=== PATIENT | female | born 1985 | race Caucasian/White ===

== ENCOUNTER 2020-09-25 12:39 | Emergency (ER) | payer MEDICAID, SELFPAY ==
--- NOTE | 2020-09-25 | XR_ITS ---
EXAMINATION: XR ELBOW, RIGHT CLINICAL INFORMATION: Right elbow pain and swelling status post fall. COMPARISON: None TECHNIQUE: AP, lateral, and oblique views of the right elbow. FINDINGS: There is no acute fracture or dislocation. The joint spaces are unremarkable. A small joint effusion cannot be excluded. Mild to moderate soft tissue swelling is seen. XR/XR elbow RT min 3V IMPRESSION: Mild to moderate soft tissue swelling without acute underlying osseous abnormality. A small joint effusion cannot be excluded.
--- NOTE | 2020-09-25 | XR_ITS ---
EXAMINATION: XR HUMERUS, RIGHT CLINICAL INFORMATION: Falling with swelling and bruising. Pain COMPARISON: None TECHNIQUE: AP and lateral views of the right humerus. FINDINGS: There is oblique displaced and medially angulated mid humeral fracture. No additional bony abnormality seen. The soft tissues are normal. XR/XR humerus RT IMPRESSION: Oblique displaced medially angulated mid humeral fracture. No other bony abnormality seen.
[2020-09-25 14:07] VITALS: BP 131/76; PULSE 96; RESP 16; TEMP 37.1; O2SAT 97; BMI 28.3
--- NOTE | 2020-09-25 15:06 | ED_ITS ---
HPI - Extremity Problem General Chief complaint: Extremity Injury, Upper Stated complaint: ? shoulder dislocation Time Seen by Provider: 09/25/20 15:06 History of Present Illness HPI Narrative: Patient complains of right upper arm pain after she tripped carrying a laundry basket up stairs and fell forward hurting her right arm with no other injury This was a trip and fall no preceding dizziness or feeling faint Related Data Previous Rx's Medication Instructions Recorded ibuprofen 600 mg PO Q6H PRN #20 tab 09/25/20 oxycodone-acetaminophen [Percocet] 1 tab PO Q6H PRN #14 tab 09/25/20 Allergies Allergy/AdvReac Type Severity Reaction Status Date / Time tramadol [TRAMADOL] Allergy Unknown UNKNOWN Unverified 05/12/20 17:34 Review of Systems Review of Systems: Positive for right upper arm pain Negative no head injury no headache no dizziness no confusion no weakness no vision change, no neck injury no neck pain no numbness no weakness no paresthesias, no chest pain no rib pain Yes all other systems are reviewed and are negative [facility] Past Medical History Attestation statement: The following information was validated with the patient. [facility] Narrative: Medical history is insulin-dependent diabetes Source: nursing notes reviewed Medical History (Updated 09/25/20 @ 15:58 by CHUY Oh) FH: cholecystectomy IDDM (insulin dependent diabetes mellitus) Social History Social History Smoked in Last 30 Days: No Use of substances other than those prescribed or required for medical reasons: No Advance Directives: No Advance Directives Information Provided: No Physical Exam Vital Signs: Vital Signs: Last Vital Signs Temp 98.8 F 09/25/20 14:07 Pulse 96 09/25/20 14:07 Resp 16 09/25/20 14:07 BP 131/76 09/25/20 14:07 Pulse Ox 97 09/25/20 14:07 Body Mass Index 28.3 General appearance uncomfortable no acute distress A&O x3 cooperative Head is normocephalic atraumatic The neck is supple and nontender The chest nontender, no respiratory distress Extremities the right upper arm mid upper arm has ecchymosis tenderness and swelling, there is pain with movement of the elbow there is no tenderness in the elbow there is no tenderness in the shoulder, no tenderness over the clavicle, wrist has full range of motion with no tenderness or swelling and hand had no tenderness or swelling, radial pulses were intact and symmetrical on both arms, sensation and cap refill were intact and normal in fingers of right hand as was all tendon function Left upper extremity and both lower extremities were normal Skin no rashes Neuro no focal deficit Course Course Course Narrative: X-ray showed a displaced mid shaft fracture of the humerus and oblique fracture Case was discussed with physician assistant cordova, who viewed the x-rays and the x-ray report and said patient could be splinted and followed in the office tomorrow morning The nurse applied a volar and sugar-tong splint with a sling, neurovascular was intact afterwards Discharge Plan Discharge Clinical Impression: Closed right humeral fracture Qualifiers: Encounter type: initial encounter Humerus Location: shaft Fracture morphology: oblique Fracture alignment: displaced Qualified Code(s): S42.331A - Displaced oblique fracture of shaft of humerus, right arm, initial encounter for closed fracture Patient Disposition: Home, Self-Care Additional Instructions: X-ray showed a broken displaced bone in her upper arm We spoke with orthopedic physician licensed investment sales assistant juan cordova who said she wanted to see you in the office tomorrow so call [phone] [facility] tomorrow morning This should be seen tomorrow so if legal secretary receptionist does not have the message from the physician licensed investment sales assistant make sure you request that she talk to the physician licensed investment sales assistant who made it clear she wants this to be seen tomorrow Return to ER any worse condition or any concerns Prescriptions: New oxycodone-acetaminophen [Percocet] 5-325 mg tablet 1 tab PO Q6H PRN (Reason: pain) Qty: 14 RF: 0 ibuprofen 600 mg tablet 600 mg PO Q6H PRN (Reason: pain) Qty: 20 RF: 0 Referrals: Vish Cordova PA-C [Physician Cnc Maintenance Technician] - 1 day (Displaced right humerus fracture discussed with physician licensed investment sales assistant to be seen tomorrow Saturday in office) Interventions: ED Discharge Assessment Last Done: 09/25/20 16:35 Discharge Date/Time: 09/25/20 16:36
[2020-09-25] MEDS: oxyCODONE HCl Immed Release 5 MG TABLET PO ×2 (15:26→15:56)
[2020-09-25] MEDS: Acetaminophen 325 MG TABLET 650 MG PO (15:27)
== END 2020-09-25 16:36 | disposition home or self-care (01) ==
PROVIDERS: Emergency Provider Emergency Medicine; PCP Physician Assistant
DX: S42.331A Displaced oblique fracture of shaft of humerus, right arm, initial encounter for closed fracture (principal); M79.601 Pain in right arm; W10.9XXA Fall (on) (from) unspecified stairs and steps, initial encounter; Y93.9 Activity, unspecified; Y92.009 Unspecified place in unspecified non-institutional (private) residence as the place of occurrence of the external cause; Y99.9 Unspecified external cause status
CPT/HCPCS: 29105; 73060; 73080; 99283

== ENCOUNTER → 2020-09-26 10:19 | Outpatient (BNVA) | payer MEDICAID, SELFPAY | PROVIDERS: PCP Physician Assistant; Visit Provider Orthopaedic Surgery | DX: S42.309A Unspecified fracture of shaft of humerus, unspecified arm, initial encounter for closed fracture (principal) | CPT/HCPCS: 99202 ==

== ENCOUNTER 2020-09-28 10:05 | Day surgery (SDC) | payer MEDICAID, SELFPAY ==
[2020-09-27 10:37] VITALS: BMI 28.3
[2020-09-28] VITALS (19 sets, daily range): BP systolic 117–136; BP diastolic 65–86; PULSE 89–125; RESP 16–20; TEMP 36.2–37.4; O2SAT 93–99; BMI 28.3
--- NOTE | 2020-09-28 08:51 | HO.ANESPROP2 ---
HPI - Anesthesia Eval Consult details Narrative: 34F w/ DM p/f humerus fixation PMFSH Past Medical History Medical History FH: cholecystectomy IDDM (insulin dependent diabetes mellitus) Family History Family History Father No problems noted. Mother No problems noted. Surgical History Surgical History History of removal of cyst Hx of cholecystectomy Social History Social History Alcohol intake: never Smoking Status: Current every day smoker Cigarettes Per Day: 10 Use of substances other than those prescribed or required for medical reasons: No Advance Directives: No Advance Directives Information Provided: Yes Current occupational status: unemployed Current occupation: right handed Exam Exam Date and Time: September 28, 2020 0851 Height,Weight and Vital Signs: Height 5 ft 4 in Weight 74.843 kg Airway Mallampati Class: II TM Dist: >3cm Neck ROM: Full Loose/Missing/Broken Teeth: No Heart: RRR Lungs: NL Assessment and Plan Assessment Anesthesia Assessment: Anesthesia Plan Discussed and Chart Reviewed Final Anesthetic Review NPO: Yes ASA Class: II Final Preanesthetic Review: No Changes in Pt Med Stat, Meds/Allgs Chart Reviewed, Consent Obtained/Reviewed and Anes Risks/Benef Reviewed Patient Risk: Intermediate Procedure Risk: Intermediate Anesthetic Plan Anesthetic Plan: GA and Regional Block Disposition: Standard PACU
--- NOTE | 2020-09-28 09:44 | FL_ITS ---
EXAMINATION: XR FLUOROSCOPY WITH IMAGES CLINICAL INFORMATION: ORIF right humerus fracture COMPARISON: Previous x-ray 09/25/2020 TECHNIQUE: Fluoroscopy performed by Dr. Ruben Bermudez. Fluoroscopy time: 2.6 minutes DAP: 0.2 mGycm2 Images: 5 FINDINGS: There is an intramedullary cat and 2 proximal and 2 distal screws transfixing the oblique right humeral shaft fracture. FL/FL guidance in OR IMPRESSION: ORIF of right humeral shaft fracture.
--- NOTE | 2020-09-28 09:46 | MHC.SHP ---
Pre-Procedural Eval Section A The patient is an INPATIENT: No Changes since office visit: Yes Patient answered all questions; No Cold of Flu in the past 2 weeks, No New Medical Problems and No Changes in Medication The History & Physical has been completed within 30 days and I have reviewed it.: Yes Section B Chief Complaint: fx of shaft humerus Allergies: Allergies Allergy/AdvReac Type Severity Reaction Status Date / Time tramadol [TRAMADOL] Allergy Unknown UNKNOWN Verified 09/26/20 10:42 Plan I have reviewed the history and physical and performed a pertinent physical examination on my patient. No changes have occurred unless specified.
[2020-09-28 10:19] LABS: Glucose, Whole Blood 313 mg/dL (60-115)
[2020-09-28 10:24] LABS: UPreg QC Valid YES
[2020-09-28 10:26] LABS: Urine Pregnancy NEGATIVE (NEGATIVE)
[2020-09-28] MEDS: Lactated Ringers 1,000 ML 50 ML IVCONT (10:36)
[2020-09-28] MEDS: Insulin Regular, Human 100 UNIT/ML 3 ML VIAL IVPUSH (11:02)
[2020-09-28 11:10] LABS: Glucose, Whole Blood 306 mg/dL (60-115)
--- NOTE | 2020-09-28 13:25 | PM.OP ---
Brief Operative Note Date of Service: 09/28/20 Pre-op diagnosis: right humeral shaft fracture Post-op diagnosis: same Procedure: IMN right humerus Implants: sherly 200x8 with 4 interlocking screws Surgeon: Ruben Bermudez MD Anesthesia: GETA and regional Technical Maintenance Technician: Sara Ingram Estimated blood loss (mL): 150 Tourniquet time (min): 0 IV fluids (mL): 1,100 Pathology: none sent Condition: stable Disposition: PACU
--- NOTE | 2020-09-28 14:50 | HO.POSTANES ---
Post Anesthesia Evaluation Post Anesthesia Evaluation Vital Signs: Vital Signs Temp Pulse Resp BP Pulse Ox 09/28/20 14:10 99.3 F 124 H 17 133/76 96 09/28/20 13:55 123 H 17 127/85 93 09/28/20 13:50 122 H 17 135/84 93 09/28/20 13:45 122 H 17 132/86 99 09/28/20 13:40 99.3 F 120 H 16 136/85 99 09/28/20 10:19 98.6 F 102 H 18 129/81 99 Anesthesia: Nerve Block and General Endotracheal-GETA Mental Status: Awake Pain Control: Satisfactory Nausea/Vomiting: None Hydration: Adequate Anesthesia-Related Issues: No Anes. Related Issues
[2020-09-28] MEDS: Ketorolac Tromethamine 15 MG/ML VIAL IVPUSH (15:34)
[2020-09-28] MEDS: oxyCODONE HCl Immed Release 5 MG TABLET PO ×2 (15:35→17:05)
[2020-09-28] MEDS: HYDROmorphone HCl 0.5 MG/0.5 ML SYRINGE 0.25 MG IVPUSH ×5 (15:35→20:45)
[2020-09-28] MEDS: Acetaminophen 325 MG TABLET 650 MG PO (15:35)
[2020-09-28 16:21] LABS: COVID-19 Test Negative (Negative)
[2020-09-28] MEDS: ceFAZolin Sodium/Dextrose,Iso 2 GM/50 ML PIGGYBACK IV (17:44)
[2020-09-28 20:50] LABS: Glucose, Whole Blood 398 mg/dL (60-115)
[2020-09-28] MEDS: Insulin Lispro 100 UNIT/ML 3 ML VIAL SUBCUT (21:22)
[2020-09-28] MEDS: 0.9 % Sodium Chloride Flush 3 ML SYRINGE IVFLUSH (21:26)
[2020-09-28] MEDS: Sodium Chloride 0.45 % 1,000 ML 80 ML IVCONT (21:26)
[2020-09-29] MEDS: oxyCODONE HCl Immed Release 5 MG TABLET PO (00:07)
[2020-09-29] MEDS: HYDROmorphone HCl 0.5 MG/0.5 ML SYRINGE 0.25 MG IVPUSH ×2 (01:07→02:16)
[2020-09-29] MEDS: hydrOXYzine HCL 25 MG TABLET PO (02:17)
[2020-09-29] MEDS: oxyCODONE HCl Immed Release 5 MG TABLET 10 MG PO ×2 (03:52→07:34)
[2020-09-29] MEDS: HYDROmorphone HCl 0.5 MG/0.5 ML SYRINGE IVPUSH (05:23)
[2020-09-29 06:04] LABS: MANUAL DIFF FLAG NO
[2020-09-29 06:50] LABS: Anion Gap 22 (12-20); Blood Urea Nitrogen 6 mg/dL (9-16); Calcium 8.2 mg/dL (8.4-10.2); Carbon Dioxide 18 mmol/L (22-29); Chloride 97 mmol/L (96-108); Creatinine Clr Calc Pharmacy 146.7; Estimated Glomerular Filt Rate > 60; Glucose Fasting 287 mg/dL (60-99); Potassium 3.5 mmol/L (3.3-5.1); Sodium 133 mmol/L (135-145)
[2020-09-29 07:04] LABS: Basophils Percent Auto 0.4 % (0-2); Hemoglobin 11.6 g/dl (12.0-16.0); Imm Gran Abs Auto 0.03 X10*3/uL (0.00-0.03); Imm Gran Pct Auto 0.4 % (0.0-0.4); Lymphocytes Percent Auto 11.9 % (20-40); Mean Corpuscular HGB Conc 34.1 g/dl (31.0-35.0); Mean Corpuscular Hemoglobin 33.8 pg (27.0-33.0); Mean Corpuscular Volume 99.1 fL (80-98); Mean Platelet Volume 10.1 fL (9.4-12.3); Monocytes Absolute Auto 0.6 X10*3/uL (0.1-1.2); Monocytes Percent Auto 7.5 % (2-11); Neutrophils Absolute Auto 6.4 X10*3/uL (2.0-8.3); Neutrophils Percent Auto 79.8 % (45-73); Platelet Count 159 X10*3/uL (160-400); Red Blood Count 3.43 X10*6/uL (4.20-5.50); Red Cell Distribution Width 11.3 % (11.0-16.0)
[2020-09-29] MEDS: oxyCODONE HCl ER 10 MG TAB.ER.12H PO (07:34)
--- NOTE | 2020-09-29 08:22 | MHC.CM.PN ---
PATIENT IS DISCHARGED HOME - SELF CARE PRIOR TO CASE MANAGEMENT INTERVENTION RN AWARE
--- NOTE | 2020-09-29 08:58 | HO.POSTANES ---
Post Anesthesia Evaluation Post Anesthesia Evaluation Vital Signs: Vital Signs Temp Pulse Resp BP Pulse Ox 09/28/20 23:32 97.2 F 89 16 136/85 99 Anesthesia: Nerve Block (Interscalene) and General Endotracheal-GETA Mental Status: Awake Pain Control: Satisfactory (C/o pain. surgical team aware per patient) Nausea/Vomiting: None Hydration: Adequate Anesthesia-Related Issues: No Anes. Related Issues
--- NOTE | 2020-09-29 09:51 | PC.NURSE ---
0800 Very anxious to leave. Seen by CHUY Wahl. Convinced to stay to see Dr Bermudez Was evaluated by PT, Sling on, right uppper arm. Hand edematous. Seen by MD. 899 Wanting to leave. Left unit without papers, stated she could not wait. 919 Back in room and asking for papers Instruc given Verbalizes understanding.
--- NOTE | 2020-09-29 10:08 | P.EN_ITS ---
Event Note Date of Service: 09/29/20 Event Note: Went to see patient for medical consultation. Patient discharged h ome.
--- NOTE | 2020-09-30 13:51 | PM.DS ---
DS: Providers Provider Date of Service: 09/30/20 Primary care physician: CHUY Hu Consults: 09/28/20 19:25 Consult to Hospitalist Routine Consulting Provider: Hospitalist DS: Diagnosis Discharge Diagnosis (1) Humerus shaft fracture: Status: Acute Problem details: Ms. Vale is a 34 yo female who presented to the office due to an injury she sustained to her right shoulder. She was found to have a displaced humeral shaft fracture. She was booked for operative fixation of the right humerus. DS: Medications Discharge Medications Home Medications: Home Medications Medication Instructions Recorded Confirmed Lantus U-100 Insulin 14 unit SUBCUT BEDTIME 09/28/20 09/28/20 Previous Rx's Medication Instructions Recorded acetaminophen 650 mg PO Q6H PRN 30 Days #240 tab 09/29/20 oxycodone 10 mg PO Q4H PRN 7 Days #42 tab 09/29/20 oxycodone [OxyContin] 10 mg PO BID 3 Days #6 tab 09/29/20 sennosides [Senna Lax] 17.2 mg PO BEDTIME PRN 30 Days #60 09/29/20 tab DS: Summary Hospital Course Hospital Course: The patient underwent a successful intramedullary nail of the right humerus, was transferred to PACU and then to the floor to recover. During their stay, their vitals were stable, afebrile at 97.2. Labs were unremarkable, H/H 11.6/34.0. POD 1 she started Physical therapy . Prior to discharge, her dressing was clean dry and intact and the plan was to be discharged home. Time Spent with Patient Time attestation: Total time spent providing and/or coordinating discharge services: Discharge coordination time: Less than 30 minutes Physical Exam Vital Signs: Vital Signs: Last Vital Signs Temp 97.2 F 09/28/20 23:32 Pulse 89 09/28/20 23:32 Resp 16 09/28/20 23:32 BP 136/85 09/28/20 23:32 Pulse Ox 99 09/28/20 23:32 Body Mass Index 28.3 Const: General: cooperative, healthy appearing and no acute distress Resp: Effort & Inspection: normal respiratory effort and able to speak in complete sentences Cardio: Rate: regular rate Peripheral pulses: Peripheral pulses 2+ throughout GI: Palpation (GI): Soft to palpation Skin: General skin exam: no rashes or lesions noted Extrem: Other: Right shoulder bandage clean dry and intact, no erythema, mild edema, Anterior deltoid sensation intact. Elbow ROM intact. Radial,ulnar and median nerve function intact. DS: Data Data Completed and Pending Labs on day of discharge: Laboratory Tests 09/28/20 09/28/20 09/28/20 10:10 10:16 10:57 WBC RBC Hgb Hct MCV MCH MCHC RDW Plt Count MPV Immature Gran % (Auto) Neut % (Auto) Lymph % (Auto) [place] % (Auto) Eos % (Auto) Baso % (Auto) Lymph # (Auto) [place] # (Auto) Eos # (Auto) Baso # (Auto) Abs Immat Gran (auto) Absolute Neuts (auto) Absolute Nucleated RBC Nucleated RBC % (auto) Sodium Potassium Chloride Carbon Dioxide Anion Gap BUN Creatinine Estim Creat Clear Calc Estimated GFR POC Glucose 313 H 306 H Fasting Glucose Calcium Urine Test NEGATIVE COVID-19 (MARIMAR) COVID-Nephera 09/28/20 09/28/20 09/29/20 15:58 20:44 05:42 WBC 8.0 RBC 3.43 L Hgb 11.6 L Hct 34.0 L MCV 99.1 H MCH 33.8 H MCHC 34.1 RDW 11.3 Plt Count 159 L MPV 10.1 Immature Gran % (Auto) 0.4 Neut % (Auto) 79.8 H Lymph % (Auto) 11.9 L [place] % (Auto) 7.5 Eos % (Auto) 0.0 Baso % (Auto) 0.4 Lymph # (Auto) 1.0 L [place] # (Auto) 0.6 Eos # (Auto) 0.0 Baso # (Auto) 0.0 Abs Immat Gran (auto) 0.03 Absolute Neuts (auto) 6.4 Absolute Nucleated RBC 0.000 Nucleated RBC % (auto) 0.0 Sodium Potassium Chloride Carbon Dioxide Anion Gap BUN Creatinine Estim Creat Clear Calc Estimated GFR POC Glucose 398 H* Fasting Glucose Calcium Urine Test COVID-19 (MARIMAR) Negative [employer] See Note 09/29/20 05:42 WBC RBC Hgb Hct MCV MCH MCHC RDW Plt Count MPV Immature Gran % (Auto) Neut % (Auto) Lymph % (Auto) [place] % (Auto) Eos % (Auto) Baso % (Auto) Lymph # (Auto) [place] # (Auto) Eos # (Auto) Baso # (Auto) Abs Immat Gran (auto) Absolute Neuts (auto) Absolute Nucleated RBC Nucleated RBC % (auto) Sodium 133 L Potassium 3.5 Chloride 97 Carbon Dioxide 18 L Anion Gap 22 H BUN 6 L Creatinine 0.53 Estim Creat Clear Calc 146.7 Estimated GFR > 60 POC Glucose Fasting Glucose 287 H Calcium 8.2 L Urine Test COVID-19 (MARIMAR) COVID-19 Clin Com Discharge Plan Discharge Patient Disposition: Home, Self-Care Referrals: Sara Ingram PA-C [Physician Assistant Offset Press Operator] - (2 weeks post op) Discharge Medications: New acetaminophen 325 mg Tablet 650 mg PO Q6H PRN (Reason: Pain, Mild (Pain Scale 1-3)) 30 Days Qty: 240 RF: 0 oxycodone [OxyContin] 10 mg Tablet,Oral Only,Ext.Rel.12 Hr 10 mg PO BID 3 Days Qty: 6 RF: 0 oxycodone 10 mg tablet 10 mg PO Q4H PRN (Reason: Pain, Moderate (Pain Scale 4-6) 7 Days Qty: 42 RF: 0 sennosides [Senna Lax] 8.6 mg Tablet 17.2 mg PO BEDTIME PRN (Reason: Constipation) 30 Days Qty: 60 RF: 0 Continued Lantus U-100 Insulin 14 unit subcut BEDTIME RF: 0 Discontinued oxycodone-acetaminophen [Percocet] 5-325 mg tablet 1 tab PO Q6H PRN (Reason: pain) Qty: 14 RF: 0 ibuprofen 600 mg tablet 600 mg PO Q6H PRN (Reason: pain) Qty: 20 RF: 0 Discharge Orders: Discharge Order (Routine); Ordered 09/29/20 Ordered By: Vish Cordova Activity Restrictions/Additional Instructions: Passive ROM to tolerance Active flexion to 45 as tolerated No active assisted abduction Pendelums tid Sling for comfort Discharge Date/Time: 09/29/20 09:50
--- NOTE | 2020-10-04 19:40 | OP_ITS ---
SURGEON: Ruben Bermudez MD INDICATIONS: This is a 34-year-old woman with a midshaft oblique humerus fracture, consented to undergo IM nail fixation. PREOPERATIVE DIAGNOSIS: Right humeral shaft fracture. POSTOPERATIVE DIAGNOSIS: Right humeral shaft fracture. PROCEDURE PERFORMED: IM nail, right humerus. ESTIMATED BLOOD LOSS: 150 mL. COMPLICATIONS: None known. ANESTHESIA: Regional and general. ASSISTANTS: Srinivasa Gong. SPECIMENS: IMPLANTS: Honey 200 x 8 humeral nail with 4 interlocking screws, 2 proximal and 2 distal. FLUIDS: 1100. PROCEDURE IN DETAIL: The patient was brought to the operating room, placed in the beach chair position. All bony prominences were well padded, and she was prepped and draped in standard sterile fashion. A time-out was called to identify proper site, proper procedure, proper surgeon. IV antibiotics per weight was administered. I began by making a 4 cm incision over the lateral deltoid from just medial to the tip of the acromion. Blunt dissection was taken through the deltoid musculature down to the humeral head. medial to the tendon and performed an supraspinatus. Start point was identified using biplanar fluoroscopy and visual inspection. Once I was happy with this, a starter awl was used to penetrate the cortex and then I sequentially reamed up to a 10. A 8 x 200 mm nail was then selected and then this was placed, and using biplanar fluoroscopy, I was happy with the location of the cat distally and proximally. The tip was buried inbound. I placed 2 proximal interlocking screws bicortically, but just barely with good purchase. I then turned distally and using perfect [place] technique, placed my 2 distal interlocking screws. I was satisfied with the reduction and obtained my final biplanar views of the humerus and was happy with the position of the hardware. I then irrigated copiously, closed my distal incisions with Vicryl and arnaud, and proximally my incision was closed with Vicryl and arnaud. I also closed intrasubstance iatrogenic rotator cuff tear. Once this was done, the patient was placed in sterile dressing, extubated, and brought to recovery room in stable condition. There were no known complications. Ruben Bermudez MD NE/MODL / [id number]
== END 2020-09-29 09:50 | disposition home or self-care (01) ==
LOC: HO.SSS 14:02 → HO.S3 09-29 07:34
PROVIDERS: Anesthesiology; Physician Assistant; PCP Physician Assistant; Visit Provider Orthopaedic Surgery
PROC: (CPT 24516; principal; 2020-09-28 11:30)
DX: S42.331A Displaced oblique fracture of shaft of humerus, right arm, initial encounter for closed fracture (principal); X58.XXXA Exposure to other specified factors, initial encounter; Y93.9 Activity, unspecified; Y92.9 Unspecified place or not applicable; Y99.8 Other external cause status; E11.9 Type 2 diabetes mellitus without complications; Z79.4 Long term (current) use of insulin; Z79.899 Other long term (current) drug therapy; F17.210 Nicotine dependence, cigarettes, uncomplicated; F12.90 Cannabis use, unspecified, uncomplicated; Z90.49 Acquired absence of other specified parts of digestive tract
CPT/HCPCS: 24516; 36415; 80048; 81025; 82947; 85025; 87635; 97161; C1713; C1769; J0690; J1170; J1885; J2250; J2405; J3010

== ENCOUNTER → 2020-10-06 12:26 | Outpatient (BNVA) | payer MEDICAID, SELFPAY | PROVIDERS: Visit Provider Orthopaedic Surgery | DX: M79.89 Other specified soft tissue disorders (principal); S42.309A Unspecified fracture of shaft of humerus, unspecified arm, initial encounter for closed fracture | CPT/HCPCS: 99212 ==

== ENCOUNTER 2020-10-07 16:50 | Outpatient (REF) | payer MEDICAID, SELFPAY ==
--- NOTE | ~2020-10-07 | US_ITS ---
EXAMINATION: US VENOUS ULTRASOUND WITH DOPPLER LOWER EXTREMITY, LEFT CLINICAL INFORMATION: Pain COMPARISON: None TECHNIQUE: Ultrasound of the deep veins is performed from the hip to the calf with compression sonography and color and pulse Doppler assessment. Spectral analysis with color-flow imaging is performed. FINDINGS: There is normal venous compression and respiratory variation and augmented flow. The visualized common femoral vein, superficial femoral vein, profunda femoral vein, popliteal vein, and the trifurcation region shows no evidence of deep venous thrombosis. There is no significant popliteal fossa cyst. If the patient's symptoms persist, followup ultrasound in 5 days 7 days might be of value to exclude proximal propagation from a non-visualized calf vein. US/US venous duplex LE LT IMPRESSION: No DVT demonstrated in the left lower extremity.
== END 2020-10-07 16:51 | disposition home or self-care (01) ==
LOC: HO.US 16:50
PROVIDERS: PCP Physician Assistant; Visit Provider Orthopaedic Surgery
DX: M79.89 Other specified soft tissue disorders (principal)
CPT/HCPCS: 93971

== ENCOUNTER → 2020-10-13 14:33 | Outpatient (BNVA) | payer MEDICAID, SELFPAY | PROVIDERS: Visit Provider Physician Assistant | DX: Z13.89 Encounter for screening for other disorder (principal) | CPT/HCPCS: 99212 ==

== ENCOUNTER → 2020-10-17 10:59 | Outpatient (BNVA) | payer MEDICAID, SELFPAY | PROVIDERS: Visit Provider Orthopaedic Surgery | DX: S42.309D Unspecified fracture of shaft of humerus, unspecified arm, subsequent encounter for fracture with routine healing (principal) | CPT/HCPCS: 99212 ==

== ENCOUNTER 2020-11-14 07:30 | Outpatient (REF) | payer MEDICAID, SELFPAY | END 2020-11-14 07:31 | disposition home or self-care (01) | LOC: HO.HOSX 07:30 | PROVIDERS: Visit Provider Orthopaedic Surgery | DX: Z13.89 Encounter for screening for other disorder (principal) ==

== ENCOUNTER 2021-01-20 15:37 | Emergency (ER) | payer MEDICAID, SELFPAY ==
[2021-01-20 15:47] VITALS: BP 114/63; PULSE 84; RESP 14; TEMP 36.6; O2SAT 93; BMI 28.1
--- NOTE | 2021-01-20 15:54 | ECG_ITS ---
Test Reason : OVERDOSE Blood Pressure : / mmHG Vent. Rate : 078 BPM Atrial Rate : 078 BPM P-R Int : 146 ms QRS Dur : 098 ms QT Int : 434 ms P-R-T Axes : 057 013 031 degrees QTc Int : 494 ms Normal sinus rhythm Possible Left atrial enlargement Nonspecific T wave abnormality Prolonged QT Abnormal ECG When compared with ECG of 14-FEB-2009 06:18, QT has shortened Referred By: Brandy Rodriguez Electronically Signed By:ALVAREZ CRANE
[2021-01-20 16:05] LABS: Glucose, Whole Blood 459 mg/dL (60-115)
--- NOTE | 2021-01-20 16:09 | ED_ITS ---
HPI - General Adult General Chief complaint: Abdominal Pain <CHUY Lynn - Last Filed: 01/20/21 17:25> Stated complaint: hyperglycemia, ?od <CHUY Lynn - Last Filed: 01/20/21 17:25> Time Seen by Provider: 01/20/21 15:54 <CHUY Lynn Last Filed: 01/20/21 17:25> Source: patient and EMS <CHUY Lynn Last Filed: 01/20/21 17:25> Mode of arrival: EMS <CHUY Lynn Last Filed: 01/20/21 17:25> Limitations: no limitations <CHUY Lynn Last Filed: 01/20/21 17:25> History of Present Illness HPI narrative: 35 y/o female with history polysubstance abuse on Methadone, still actively using [place] heroin, history of insulin dependent diabetes diagnosed within the last 1 year who presents to the ED after she became unresponsive after using 2 bags of heroin at 11am. She has been using drugs on/off for 8 years. She is currently homeless and living in a nursing home in [place]. She is supposed to take Lantus and Lispro SS but has not taken her insulin in at least 2 weeks. She reports some right sided flank pain s/p fall a few days ago. She states she falls all the time. It hurts to take a deep breath and touch her right side. She thinks she broke a rib. At rest she has no chest pain or SOB. No cough. No fever or chills. She thinks she has a UTI with burning on urination. She says she missed a few days of her methadone and her dose was decreased to 25 mg today. On EMS arrival she was arousable and did not require Narcan. She arrives to the ER lethargic but awakens to voice and is conversant. She had a [employer] milkshake on arrival. Glucose 500 for EMS. <CHUY Lynn Last Filed: 01/20/21 17:25> MD complaint: AMS, hyperglyemia <CHUY Lynn Last Filed: 01/20/21 17:25> Onset (ago): hour(s) <CHUY Lynn Last Filed: 01/20/21 17:25> Location: chest (s/p fall) <CHUY Lynn - Last Filed: 01/20/21 17:25> Radiation: non-radiation <CHUY Lynn - Last Filed: 01/20/21 17:25> Severity: moderate <CHUY Lynn - Last Filed: 01/20/21 17:25> Severity scale (1-10): 5 <CHUY Lynn - Last Filed: 01/20/21 17:25> Quality: aching <CHUY Lynn - Last Filed: 01/20/21 17:25> Pain Consistency: intermittent <CHUY Lynn - Last Filed: 01/20/21 17:25> Relieving factors: rest <CHUY Lynn - Last Filed: 01/20/21 17:25> Exacerbating factors: movement and other (deep breaths) <CHUY Lynn - Last Filed: 01/20/21 17:25> Associated symptoms: chest pain <CHUY Lynn - Last Filed: 01/20/21 17:25> Treatments prior to arrival: none <CHUY Lynn - Last Filed: 01/20/21 17:25> Related Data Home medications: Home Medications Medication Instructions Recorded Confirmed fluoxetine 20 mg PO QAM 01/20/21 01/20/21 insulin glargine [Lantus Solostar 20 unit SUBCUT QAM 01/20/21 01/20/21 U-100 Insulin] insulin glargine [Lantus Solostar 25 unit SUBCUT QPM 01/20/21 01/20/21 U-100 Insulin] insulin lispro [Humalog KwikPen 2 - 10 unit SUBCUT TID PRN 01/20/21 01/20/21 Insulin] methadone [Methadone Intensol] 25 mg PO DAILY 01/20/21 quetiapine 0.5 - 1 tab PO TID PRN 01/20/21 01/20/21 <CHUY Lynn - Last Filed: 01/20/21 17:25> Allergies/adverse reactions: Allergies Allergy/AdvReac Type Severity Reaction Status Date / Time No Known Allergies Allergy Verified 10/17/20 11:12 <CHUY Lynn - Last Filed: 01/20/21 17:25> Review of Systems Review of Systems: Constitutional: No Fever, No Chills ENT/Mouth: No sore throat, No Rhinorrhea, No Swallowing Difficulty Eyes: No Eye Pain, No Swelling, No Redness Cardiovascular: + Chest Pain, No SOB, No Orthopnea, No Edema Respiratory: No Cough, No Sputum, No Wheezing, No dyspnea Gastrointestinal: No Nausea, No Vomiting, No Diarrhea, No abdominal Pain, No Hematochezia, No Melena Genitourinary: No Dysuria, No Urinary Frequency, No Hematuria Musculoskeletal: No joint pain, No Myalgias Skin: No Skin Lesions, No rash Neuro: + Weakness, No Numbness, No Dizziness, No Headache Psych: No Anxiety/Panic, No Depression Heme/Lymph: No Bruising, No Lymphadenopathy Endocrine: No Polyuria, No Polydipsia <CHUY Lynn - Last Filed: 01/20/21 17:25> [facility] Past Medical History Attestation statement: The following information was validated with the patient. <CHUY Lynn - Last Filed: 01/20/21 17:25> Medical History: Medical History FH: cholecystectomy Fracture of shaft of humerus IDDM (insulin dependent diabetes mellitus) Swollen leg <CHUY Lynn - Last Filed: 01/20/21 17:25> Surgical History: Surgical History History of removal of cyst History of surgery on arm Hx of cholecystectomy <CHUY Lynn - Last Filed: 01/20/21 17:25> Family History Family History: Family History Father No problems noted. Mother No problems noted. <CHUY Lynn - Last Filed: 01/20/21 17:25> Social History Social History: Social History Household Members: Family Housing: House Alcohol intake: current Cigarettes Per Day: 8 Second Hand Smoke Exposure: Yes Substance Use Type: Marijuana and Painkillers Advance Directives: No Advance Directives Information Provided: Yes Current occupational status: unemployed Current occupation: right handed <CHUY Lynn - Last Filed: 01/20/21 17:25> Physical Exam Vital Signs: Vital Signs: Last Vital Signs Temp 97.9 F 01/20/21 15:47 Pulse 84 01/20/21 15:47 Resp 14 01/20/21 15:47 BP 114/63 01/20/21 15:47 Pulse Ox 93 01/20/21 15:47 Body Mass Index 28.1 Appearance: Lethargic, arouses to voice, appears older than stated age, no distess. Eyes: Pupils equal, round and reactive to light, 3mm bilaterally. ENT: Normal external inspection. Normal voice Neck: Normal inspection. Neck supple. CVS: Normal heart rate and rhythm. Pulses normal. Respiratory: No respiratory distress. Breath sounds normal. Right lateral chest wall tenderness, no deformity, no ecchymosis. Abdomen: Soft with mild RUQ tenderness, no guarding or rebound, +BS x4. no ecchymosis on flank Skin: Skin warm and dry. Normal skin color. Normal skin turgor. No rashes. Extremities: No lower extremity edema. Multiple small abrasions on bilateral feet, heels are cracked and dry. 2+ dp pulses. no warmth or redness Neuro: Oriented X 3. No motor deficit. No sensory deficit. Speaks in complete sentences. <CHUY Lynn - Last Filed: 01/20/21 17:25> Vital Signs: Last Vital Signs Temp 97.9 F 01/20/21 15:47 Pulse 84 01/20/21 15:47 Resp 14 01/20/21 15:47 BP 114/63 01/20/21 15:47 Pulse Ox 93 01/20/21 15:47 Body Mass Index 28.1 <Laina Swenson NP - Last Filed: 01/20/21 17:51> Course Course Course Narrative: 35 y/o female with history of opiate abuse/dependence on Methdone still actively using, hx IDDM (diagnosed within last 1 year) presents with lethargy in the setting of heroin use as well as hyperglycemia in the setting of insulin noncompliance. FS 500s. Speaking in complete sentences and not tachypneic, doubt DKA. Will check acetone and VBG to r/o as well as CMP to assess for anion gap. SpO2 92% when sleeping, placed on 2L NC with improvement to 97%. Will get CXR and rib XR's to assess for rib fractures and pneumonia. Dispo pending results and improvement. IVF and insulin ordered. <CHUY Lynn - Last Filed: 01/20/21 17:25> 5:51 p.m. patient states that she wants leave against medical advice. Patient is alert oriented x4, stands the risks leaving without proper care. <Laina Swenson NP - Last Filed: 01/20/21 17:51> Reevaluation(s) Reevaluation #1: Lactic acid 3.1, unlikely from sepsis. Most likely dehydration, poor PO intake. No leukocytosis or fevers. Additional IVF ordered. <CHUY Lynn - Last Filed: 01/20/21 17:25> Medical Decision Making Lab Data Result diagrams: : 01/20/21 16:06 01/20/21 16:06 <CHUY Lynn - Last Filed: 01/20/21 17:25> Labs: Lab Results 01/20/21 01/20/21 01/20/21 Range/Units 15:59 16:06 16:06 WBC 6.1 (4.8-10.8) X10*3/uL RBC 3.71 L (4.20-5.50) X10*6/uL Hgb 12.4 (12.0-16.0) g/dl Hct 35.4 L (37-47) % MCV 95.4 (80-98) fL MCH 33.4 H (27.0-33.0) pg MCHC 35.0 (31.0-35.0) g/dl RDW 12.6 (11.0-16.0) % Plt Count 274 D (160-400) X10*3/uL MPV 9.3 L (9.4-12.3) fL Immature Gran % (Auto) 0.8 H (0.0-0.4) % Neut % (Auto) 57.9 (45-73) % Lymph % (Auto) 33.3 (20-40) % Haralson % (Auto) 6.8 (2-11) % Eos % (Auto) 0.7 (0-4) % Baso % (Auto) 0.5 (0-2) % Lymph # (Auto) 2.0 (1.2-4.9) X10*3/uL Har[place]on # (Auto) 0.4 (0.1-1.2) X10*3/uL Eos # (Auto) 0.0 (0.0-0.4) X10*3/uL Baso # (Auto) 0.0 (0.0-0.2) X10*3/uL Abs Immat Gran (auto) 0.05 H (0.00-0.03) X10*3/uL Absolute Neuts (auto) 3.5 (2.0-8.3) X10*3/uL Absolute Nucleated RBC 0.000 (0.0-0.012) X10*3/uL Nucleated RBC % (auto) 0.0 (0.0-0.2) /100WBC Hold Blue Top VBG pH (7.32-7.43) VBG pCO2 mmHg VBG pO2 mmHg VBG HCO3 (22-26) mmol/L VBG O2 Saturation % VBG Base Excess mmol/L POC Glucose 459 H* (60-115) mg/dL Lactic Acid (0.5-2.0) mmol/L Troponin I High Sens (<3.5-17.0) ng/L Urine Color Urine Appearance Urine pH (5.0-8.0) Ur Specific Hurley (1.005-1.025) Urine Protein (NEG-TRACE) MG/DL Urine Glucose (UA) (NEG) MG/DL Urine Ketones (NEG) MG/DL Urine Blood (NEG) Urine Nitrite (NEG) Ur Leukocyte Esterase (NEG) Urine Test (NEGATIVE) COVID-19 (MARIMAR) Negative (Negative) COVID-19 Clin Com See Note 01/20/21 01/20/21 01/20/21 Range/Units 16:06 16:06 16:06 WBC (4.8-10.8) X10*3/uL RBC (4.20-5.50) X10*6/uL Hgb (12.0-16.0) g/dl Hct (37-47) % MCV (80-98) fL MCH (27.0-33.0) pg MCHC (31.0-35.0) g/dl RDW (11.0-16.0) % Plt Count (160-400) X10*3/uL MPV (9.4-12.3) fL Immature Gran % (Auto) (0.0-0.4) % Neut % (Auto) (45-73) % Lymph % (Auto) (20-40) % Haralson % (Auto) (2-11) % Eos % (Auto) (0-4) % Baso % (Auto) (0-2) % Lymph # (Auto) (1.2-4.9) X10*3/uL Har[place]on # (Auto) (0.1-1.2) X10*3/uL Eos # (Auto) (0.0-0.4) X10*3/uL Baso # (Auto) (0.0-0.2) X10*3/uL Abs Immat Gran (auto) (0.00-0.03) X10*3/uL Absolute Neuts (auto) (2.0-8.3) X10*3/uL Absolute Nucleated RBC (0.0-0.012) X10*3/uL Nucleated RBC % (auto) (0.0-0.2) /100WBC Hold Blue Top SEE NOTE VBG pH (7.32-7.43) VBG pCO2 mmHg VBG pO2 mmHg VBG HCO3 (22-26) mmol/L VBG O2 Saturation % VBG Base Excess mmol/L POC Glucose (60-115) mg/dL Lactic Acid 3.1 H* (0.5-2.0) mmol/L Troponin I High Sens < 3.5 (<3.5-17.0) ng/L Urine Color Urine Appearance Urine pH (5.0-8.0) Ur Specific Hurley (1.005-1.025) Urine Protein (NEG-TRACE) MG/DL Urine Glucose (UA) (NEG) MG/DL Urine Ketones (NEG) MG/DL Urine Blood (NEG) Urine Nitrite (NEG) Ur Leukocyte Esterase (NEG) Urine Test (NEGATIVE) COVID-19 (MARIMAR) (Negative) COVID-19 Clin Com 01/20/21 01/20/21 01/20/21 Range/Units 16:41 16:58 16:58 WBC (4.8-10.8) X10*3/uL RBC (4.20-5.50) X10*6/uL Hgb (12.0-16.0) g/dl Hct (37-47) % MCV (80-98) fL MCH (27.0-33.0) pg MCHC (31.0-35.0) g/dl RDW (11.0-16.0) % Plt Count (160-400) X10*3/uL MPV (9.4-12.3) fL Immature Gran % (Auto) (0.0-0.4) % Neut % (Auto) (45-73) % Lymph % (Auto) (20-40) % Haralson % (Auto) (2-11) % Eos % (Auto) (0-4) % Baso % (Auto) (0-2) % Lymph # (Auto) (1.2-4.9) X10*3/uL [place] # (Auto) (0.1-1.2) X10*3/uL Eos # (Auto) (0.0-0.4) X10*3/uL Baso # (Auto) (0.0-0.2) X10*3/uL Abs Immat Gran (auto) (0.00-0.03) X10*3/uL Absolute Neuts (auto) (2.0-8.3) X10*3/uL Absolute Nucleated RBC (0.0-0.012) X10*3/uL Nucleated RBC % (auto) (0.0-0.2) /100WBC Hold Blue Top VBG pH 7.36 (7.32-7.43) VBG pCO2 44 mmHg VBG pO2 147 mmHg VBG HCO3 25 (22-26) mmol/L VBG O2 Saturation 98.0 % VBG Base Excess -0.1 mmol/L POC Glucose (60-115) mg/dL Lactic Acid (0.5-2.0) mmol/L Troponin I High Sens (<3.5-17.0) ng/L Urine Color YELLOW Urine Appearance CLEAR Urine pH 6.0 (5.0-8.0) Ur Specific Hurley 1.010 (1.005-1.025) Urine Protein NEG (NEG-TRACE) MG/DL Urine Glucose (UA) >=1000 H (NEG) MG/DL Urine Ketones 15 (NEG) MG/DL Urine Blood NEG (NEG) Urine Nitrite POS H (NEG) Ur Leukocyte Esterase NEG (NEG) Urine Test NEGATIVE (NEGATIVE) COVID-19 (MARIMAR) (Negative) COVID-19 Clin Com <CHUY Lynn - Last Filed: 01/20/21 17:25> Lab Results 01/20/21 01/20/21 01/20/21 Range/Units 15:59 16:06 16:06 WBC 6.1 (4.8-10.8) X10*3/uL RBC 3.71 L (4.20-5.50) X10*6/uL Hgb 12.4 (12.0-16.0) g/dl Hct 35.4 L (37-47) % MCV 95.4 (80-98) fL MCH 33.4 H (27.0-33.0) pg MCHC 35.0 (31.0-35.0) g/dl RDW 12.6 (11.0-16.0) % Plt Count 274 D (160-400) X10*3/uL MPV 9.3 L (9.4-12.3) fL Immature Gran % (Auto) 0.8 H (0.0-0.4) % Neut % (Auto) 57.9 (45-73) % Lymph % (Auto) 33.3 (20-40) % Haralson % (Auto) 6.8 (2-11) % Eos % (Auto) 0.7 (0-4) % Baso % (Auto) 0.5 (0-2) % Lymph # (Auto) 2.0 (1.2-4.9) X10*3/uL [place]on # (Auto) 0.4 (0.1-1.2) X10*3/uL Eos # (Auto) 0.0 (0.0-0.4) X10*3/uL Baso # (Auto) 0.0 (0.0-0.2) X10*3/uL Abs Immat Gran (auto) 0.05 H (0.00-0.03) X10*3/uL Absolute Neuts (auto) 3.5 (2.0-8.3) X10*3/uL Absolute Nucleated RBC 0.000 (0.0-0.012) X10*3/uL Nucleated RBC % (auto) 0.0 (0.0-0.2) /100WBC Hold Blue Top VBG pH (7.32-7.43) VBG pCO2 mmHg VBG pO2 mmHg VBG HCO3 (22-26) mmol/L VBG O2 Saturation % VBG Base Excess mmol/L POC Glucose 459 H* (60-115) mg/dL Lactic Acid (0.5-2.0) mmol/L Troponin I High Sens (<3.5-17.0) ng/L Urine Color Urine Appearance Urine pH (5.0-8.0) Ur Specific Hurley (1.005-1.025) Urine Protein (NEG-TRACE) MG/DL Urine Glucose (UA) (NEG) MG/DL Urine Ketones (NEG) MG/DL Urine Blood (NEG) Urine Nitrite (NEG) Ur Leukocyte Esterase (NEG) Urine Test (NEGATIVE) COVID-19 (MARIMAR) Negative (Negative) COVID-19 Clin Com See Note 01/20/21 01/20/21 01/20/21 Range/Units 16:06 16:06 16:06 WBC (4.8-10.8) X10*3/uL RBC (4.20-5.50) X10*6/uL Hgb (12.0-16.0) g/dl Hct (37-47) % MCV (80-98) fL MCH (27.0-33.0) pg MCHC (31.0-35.0) g/dl RDW (11.0-16.0) % Plt Count (160-400) X10*3/uL MPV (9.4-12.3) fL Immature Gran % (Auto) (0.0-0.4) % Neut % (Auto) (45-73) % Lymph % (Auto) (20-40) % [place] % (Auto) (2-11) % Eos % (Auto) (0-4) % Baso % (Auto) (0-2) % Lymph # (Auto) (1.2-4.9) X10*3/uL [place]on # (Auto) (0.1-1.2) X10*3/uL Eos # (Auto) (0.0-0.4) X10*3/uL Baso # (Auto) (0.0-0.2) X10*3/uL Abs Immat Gran (auto) (0.00-0.03) X10*3/uL Absolute Neuts (auto) (2.0-8.3) X10*3/uL Absolute Nucleated RBC (0.0-0.012) X10*3/uL Nucleated RBC % (auto) (0.0-0.2) /100WBC Hold Blue Top SEE NOTE VBG pH (7.32-7.43) VBG pCO2 mmHg VBG pO2 mmHg VBG HCO3 (22-26) mmol/L VBG O2 Saturation % VBG Base Excess mmol/L POC Glucose (60-115) mg/dL Lactic Acid 3.1 H* (0.5-2.0) mmol/L Troponin I High Sens < 3.5 (<3.5-17.0) ng/L Urine Color Urine Appearance Urine pH (5.0-8.0) Ur Specific Hurley (1.005-1.025) Urine Protein (NEG-TRACE) MG/DL Urine Glucose (UA) (NEG) MG/DL Urine Ketones (NEG) MG/DL Urine Blood (NEG) Urine Nitrite (NEG) Ur Leukocyte Esterase (NEG) Urine Test (NEGATIVE) COVID-19 (MARIMAR) (Negative) COVID-19 Clin Com 01/20/21 01/20/21 01/20/21 Range/Units 16:41 16:58 16:58 WBC (4.8-10.8) X10*3/uL RBC (4.20-5.50) X10*6/uL Hgb (12.0-16.0) g/dl Hct (37-47) % MCV (80-98) fL MCH (27.0-33.0) pg MCHC (31.0-35.0) g/dl RDW (11.0-16.0) % Plt Count (160-400) X10*3/uL MPV (9.4-12.3) fL Immature Gran % (Auto) (0.0-0.4) % Neut % (Auto) (45-73) % Lymph % (Auto) (20-40) % [place]alson % (Auto) (2-11) % Eos % (Auto) (0-4) % Baso % (Auto) (0-2) % Lymph # (Auto) (1.2-4.9) X10*3/uL [place] # (Auto) (0.1-1.2) X10*3/uL Eos # (Auto) (0.0-0.4) X10*3/uL Baso # (Auto) (0.0-0.2) X10*3/uL Abs Immat Gran (auto) (0.00-0.03) X10*3/uL Absolute Neuts (auto) (2.0-8.3) X10*3/uL Absolute Nucleated RBC (0.0-0.012) X10*3/uL Nucleated RBC % (auto) (0.0-0.2) /100WBC Hold Blue Top VBG pH 7.36 (7.32-7.43) VBG pCO2 44 mmHg VBG pO2 147 mmHg VBG HCO3 25 (22-26) mmol/L VBG O2 Saturation 98.0 % VBG Base Excess -0.1 mmol/L POC Glucose (60-115) mg/dL Lactic Acid (0.5-2.0) mmol/L Troponin I High Sens (<3.5-17.0) ng/L Urine Color YELLOW Urine Appearance CLEAR Urine pH 6.0 (5.0-8.0) Ur Specific Hurley 1.010 (1.005-1.025) Urine Protein NEG (NEG-TRACE) MG/DL Urine Glucose (UA) >=1000 H (NEG) MG/DL Urine Ketones 15 (NEG) MG/DL Urine Blood NEG (NEG) Urine Nitrite POS H (NEG) Ur Leukocyte Esterase NEG (NEG) Urine Test NEGATIVE (NEGATIVE) COVID-19 (MARIMAR) (Negative) COVID-19 Clin Com <Laina Swenson NP - Last Filed: 01/20/21 17:51> ECG Data Attestation: I personally reviewed and interpreted this ECG as follows: <CHUY Lynn - Last Filed: 01/20/21 17:25> Interpretation: normal sinus rhythm, HR 78 bpm, nonspecific T-wave abnormality, prolonged QTc 494 ms, normal NE interval., <CHUY Lynn - Last Filed: 01/20/21 17:25> Critical Care Time Critical Care Time Critical Care Time: Yes <CHUY Lynn - Last Filed: 01/20/21 17:25> Total Critical Care Time: 42 <CHUY Lynn - Last Filed: 01/20/21 17:25> Attestation: I attest to critical care time spent caring for this patient. <CHUY Lynn - Last Filed: 01/20/21 17:25> Discharge Plan Discharge Clinical Impression: IDDM (insulin dependent diabetes mellitus), Acidosis, lactic Overdose Qualifiers: Encounter type: initial encounter Injury intent: accidental or unintentional Qualified Code(s): T50.901A - Poisoning by unspecified drugs, medicaments and biological substances, accidental (unintentional), initial encounter <CHUY Lynn - Last Filed: 01/20/21 17:25> Patient Disposition: Left Against Medical Advice <CHUY Lynn - Last Filed: 01/20/21 17:25> Additional Instructions: You are leaving against medical advice. You are more than welcome to return at any time for continued treatment. <CHUY Lynn - Last Filed: 01/20/21 17:25> Prescriptions: No Action fluoxetine 20 mg capsule 20 mg PO QAM RF: 0 insulin lispro [Humalog KwikPen Insulin] 100 unit/mL insulin pen 2 - 10 unit subcut TID PRN (Reason: Hyperglycemia) RF: 0 quetiapine 50 mg tablet 0.5 - 1 tab PO TID PRN (Reason: anxiety) RF: 0 Lantus Solostar U-100 Insulin 100 unit/mL (3 mL) insulin pen 20 unit subcut QAM RF: 0 Lantus Solostar U-100 Insulin 100 unit/mL (3 mL) insulin pen 25 unit subcut QPM RF: 0 methadone [Methadone Intensol] 10 mg/mL Concentrate 25 mg PO DAILY RF: 0 <CHUY Lynn Last Filed: 01/20/21 17:25> Stand Alone Forms: Against Medical Advice <CHUY Lynn Last Filed: 01/20/21 17:25>
--- NOTE | 2021-01-20 16:36 | HE.PHANOTE ---
Pharmacy Consult ? Medication Reconciliation Pharmacy has completed the medication reconciliation. Patient has very poor adherence (has not taken medication for greater than 1 week). Patient also reports getting methadone 25mg from [facility] (awaiting methadone clinic verification from nursing).
[2021-01-20 16:44] LABS: MANUAL DIFF FLAG NO
[2021-01-20 16:47] LABS: Venous Blood Gas Refer to POC result
[2021-01-20 16:49] LABS: VBG Base Excess -0.1 mmol/L; VBG HCO3 25 mmol/L (22-26); VBG pCO2 44 mmHg; VBG pH 7.36 (7.32-7.43); VBG pO2 147 mmHg
[2021-01-20] MEDS: 0.9 % Sodium Chloride 1,000 ML 999 ML IVCONT (16:56)
[2021-01-20 17:00] LABS: COVID-19 Test Negative (Negative); IDNOW Serial# 9DD0AD1C
[2021-01-20 17:17] LABS: Basophils Percent Auto 0.5 % (0-2); Eosinophils Percent Auto 0.7 % (0-4); Hematocrit 35.4 % (37-47); Hemoglobin 12.4 g/dl (12.0-16.0); Imm Gran Abs Auto 0.05 X10*3/uL (0.00-0.03); Imm Gran Pct Auto 0.8 % (0.0-0.4); Lymphocytes Percent Auto 33.3 % (20-40); Mean Corpuscular Hemoglobin 33.4 pg (27.0-33.0); Mean Corpuscular Volume 95.4 fL (80-98); Mean Platelet Volume 9.3 fL (9.4-12.3); Monocytes Absolute Auto 0.4 X10*3/uL (0.1-1.2); Monocytes Percent Auto 6.8 % (2-11); Neutrophils Absolute Auto 3.5 X10*3/uL (2.0-8.3); Neutrophils Percent Auto 57.9 % (45-73); Platelet Count 274 X10*3/uL (160-400); Red Blood Count 3.71 X10*6/uL (4.20-5.50); Red Cell Distribution Width 12.6 % (11.0-16.0); White Blood Count 6.1 X10*3/uL (4.8-10.8)
[2021-01-20 17:23] LABS: Lactic Acid 3.1 mmol/L (0.5-2.0)
[2021-01-20 17:26] LABS: Troponin-I High Sensitivity < 3.5 ng/L (<3.5-17.0)
--- NOTE | 2021-01-20 17:30 | PC.NURSE ---
Patient refusing insulin. pt refuses to stay. Pt states she want to go home now. ER provider notified.
[2021-01-20 17:47] LABS: Glucose Urine UA >=1000 MG/DL (NEG); Leukocyte Esterase Urine NEG (NEG); Nitrite Urine POS (NEG); UACC Culture Trigger YES; UPreg QC Valid YES; Urine Blood NEG (NEG); Urine Ketones 15 MG/DL (NEG); Urine Pregnancy NEGATIVE (NEGATIVE); Urine Protein NEG (NEG-TRACE)
[2021-01-20 17:48] LABS: Appearance Urine CLEAR; Color Urine YELLOW
--- NOTE | 2021-01-20 17:50 | MHC.RECOVSUP ---
? Reason for consult recovery support o Current location: ED10 o Identified substance use concern: Heroin - Support ? Intervention: o Community resources provided o Harm reduction discussion ? Plan: o Patient to follow up with [facility] after discharge ? Additional information: ? Reason for consult o Current location: o Identified substance use concern: - Overdose - Withdrawal - Seeking ATS (detox) - Support ? Intervention: o ATS bed search started/completed/in process o MAT started or to be started o Community resources provided o Harm reduction discussion ? Plan: o Referral to [facility] o Bed search in progress to o Follow up tomorrow o Patient awaiting crisis evaluation o Patient to follow up with [facility] after discharge ? Additional information:
[2021-01-20 17:53] LABS: Amphetamine Screen Urine Not Detected (Not Detect); Barbiturates, Urine Not Detected (Not Detect); Benzodiazepines Screen Urine Not Detected (Not Detect); Cannabinoid Screen Urine Not Detected (Not Detect); Cocaine Screen Urine Not Detected (Not Detect); Opiate Screen Urine POSITIVE (Not Detect); Phencyclidine Screen Urine Not Detected (Not Detect)
--- NOTE | 2021-01-20 17:55 | MHC.MBSS ---
After encouraging patient to stay for treatment. Pt continues to refuse to stay. Pt signed AMA form and is ambulatory to exit.
[2021-01-20 17:56] LABS: Bacteria Urine 3+ /LPF; RBC Urine 0 /HPF (0); Squamous Epithelial Cell Urine 1+ /LPF; WBC Urine 0-2 /HPF (0-4)
[2021-01-20 17:56] LABS: Glucose, Whole Blood 478 mg/dL (60-115)
--- NOTE | 2021-01-20 17:56 | MHC.RECOVSUP ---
? Reason for consult recovery support o Current location: ED10 o Identified substance use concern: Heroin - Support ? Intervention: o Community resources provided o Harm reduction discussion ? Plan: o Patient to follow up with [facility] after discharge ? Additional information: Met with patient and supplied patient with resources..
[2021-01-20 18:42] LABS: Reflex Lactate? Lactic Acid Added
== END 2021-01-20 18:16 | disposition left against medical advice (07) ==
PROVIDERS: Physician Assistant; Emergency Provider Emergency Medicine; PCP Physician Assistant
DX: T40.1X1A Poisoning by heroin, accidental (unintentional), initial encounter (principal); R53.83 Other fatigue; R10.11 Right upper quadrant pain; Y92.410 Unspecified street and highway as the place of occurrence of the external cause; R07.9 Chest pain, unspecified; E11.10 Type 2 diabetes mellitus with ketoacidosis without coma; E11.65 Type 2 diabetes mellitus with hyperglycemia; S90.812A Abrasion, left foot, initial encounter; S90.811A Abrasion, right foot, initial encounter; X58.XXXA Exposure to other specified factors, initial encounter; F11.20 Opioid dependence, uncomplicated; Z20.822 Contact with and (suspected) exposure to COVID-19; Z90.49 Acquired absence of other specified parts of digestive tract; Y93.9 Activity, unspecified; Y92.9 Unspecified place or not applicable; Y99.9 Unspecified external cause status; Z91.14 Patient's other noncompliance with medication regimen
CPT/HCPCS: 36415; 80048; 80076; 80307; 81001; 81003; 81025; 82009; 82947; 83605; 83690; 83735; 84484; 85025; 87040; 87086; 87088; 87186; 87635; 93005; 96360; 96361; 99284; 99291

== ENCOUNTER 2021-01-23 17:42 | Emergency (ER) | payer MEDICAID, SELFPAY ==
--- NOTE | 2021-01-23 17:54 | ED.ALCOHOL ---
HPI - Alcohol General Chief Complaint: Overdose Stated Complaint: ETOH HEROIN USE Time Seen by Provider: 01/23/21 17:54 Source: patient and EMS Mode of arrival: EMS Limitations: no limitations History of Present Illness HPI narrative: 35 yo female IDDM just seen here 2 days ago for BS > 500 and R rib pain - left AMA, [place] - empty vodka bottle, bag of heroin per PD no narcan, comes in asking for detox MD complaint: alcohol intoxication and desires rehab Last drink: Just prior to admission Chronic alcohol use: Yes Previous visits for alcohol intoxication: Yes Recent trauma: No Associated symptoms: denies other symptoms Treatments prior to arrival: none Related Data Home Medications Medication Instructions Recorded Confirmed fluoxetine 20 mg PO QAM 01/20/21 01/20/21 insulin glargine [Lantus Solostar 20 unit SUBCUT QAM 01/20/21 01/20/21 U-100 Insulin] insulin glargine [Lantus Solostar 25 unit SUBCUT QPM 01/20/21 01/20/21 U-100 Insulin] insulin lispro [Humalog KwikPen 2 - 10 unit SUBCUT TID PRN 01/20/21 01/20/21 Insulin] methadone [Methadone Intensol] 25 mg PO DAILY 01/20/21 quetiapine 0.5 - 1 tab PO TID PRN 01/20/21 01/20/21 Allergies Allergy/AdvReac Type Severity Reaction Status Date / Time No Known Allergies Allergy Verified 10/17/20 11:12 Review of Systems Review of Systems: Constitutional : No Fever, No Chills ENT/Mouth : No Ear Pain, No Nasal Congestion, No sore throat Eyes: No Eye Pain, No Swelling, No Redness Cardiovascular : No Chest Pain, No SOB Respiratory : No Cough, No Sputum, No Dyspnea Gastrointestinal : No Nausea, No Vomiting, No Diarrhea, No Hematochezia, No Melena Genitourinary : No Dysuria, No Urinary Frequency, No Hematuria Musculoskeletal : No Myalgias Skin : No Skin Lesions, No rash Neuro : No Weakness, No Numbness, No Paresthesias, No Dizziness, No Headache Psych : positive Anxiety, positive Depression, no SI/HI Heme/Lymph: No Lymphadenopathy Endocrine : No Polyuria, No Polydipsia All other systems reviewed and are negative [facility], [facility] Past Medical History Attestation statement: The following information was validated with the patient. Medical History FH: cholecystectomy Fracture of shaft of humerus IDDM (insulin dependent diabetes mellitus) Swollen leg Surgical History History of removal of cyst History of surgery on arm Hx of cholecystectomy Family History Family History Father No problems noted. Mother No problems noted. Social History Social History Household Members: Family Housing: House Alcohol intake: current Patient Tobacco Use Status: Tobacco use Unknown Cigarettes Per Day: 8 Second Hand Smoke Exposure: Yes Substance Use Type: Heroin and Marijuana Advance Directives: No Advance Directives Information Provided: Yes Current occupational status: unemployed Current occupation: right handed Physical Exam Vital Signs: Vital Signs: Last Vital Signs Temp 97 F 01/23/21 18:04 Pulse 104 H 01/23/21 18:04 Resp 12 01/23/21 18:04 BP 114/74 01/23/21 18:04 Pulse Ox 92 01/23/21 18:04 Body Mass Index 30.0 Appearance: Alert. Oriented X3. No acute distress. Anxious, disheveled, appears intoxicated Eyes: Pupils equal, round and reactive to light. ENT: Pharynx normal. Neck: Normal inspection. Neck supple. CVS: Normal heart rate and rhythm. Pulses normal. Respiratory: No respiratory distress. Breath sounds normal. Abdomen: Soft and non-tender. Skin: Skin warm and dry. Normal skin color. Normal skin turgor. Extremities: No lower extremity edema. No calf ttp Neuro: Oriented X 3. No motor deficit. No sensory deficit. Course Course Course Narrative: subQ insulin ordered at this time currently alert and oriented x 3, clinically sober, steady gait, no narcan given, refusing all care and wants to sign out AMA MDM - Alcohol MDM Narrative Medical decision making narrative: 35 yo female hx of IDDM, here with ETOH and heroin abuse - at this time no SI, wants detox will obtain basic labs, check POC sugar, request CARE team consult Lab Data Result diagrams: 01/23/21 18:24 01/23/21 18:24 Labs: Lab Results 01/23/21 01/23/21 01/23/21 Range/Units 18:09 18:18 18:24 WBC 5.6 (4.8-10.8) X10*3/uL RBC 4.07 L (4.20-5.50) X10*6/uL Hgb 14.4 (12.0-16.0) g/dl Hct 39.5 (37-47) % MCV 97.1 (80-98) fL MCH 35.4 H (27.0-33.0) pg MCHC 36.5 H (31.0-35.0) g/dl RDW 13.0 (11.0-16.0) % Plt Count 239 (160-400) X10*3/uL MPV 9.1 L (9.4-12.3) fL Immature Gran % (Auto) 0.7 H (0.0-0.4) % Neut % (Auto) 58.0 (45-73) % Lymph % (Auto) 33.7 (20-40) % Merrick % (Auto) 6.9 (2-11) % Eos % (Auto) 0.2 (0-4) % Baso % (Auto) 0.5 (0-2) % Lymph # (Auto) 1.9 (1.2-4.9) X10*3/uL Merrick # (Auto) 0.4 (0.1-1.2) X10*3/uL Eos # (Auto) 0.0 (0.0-0.4) X10*3/uL Baso # (Auto) 0.0 (0.0-0.2) X10*3/uL Abs Immat Gran (auto) 0.04 H (0.00-0.03) X10*3/uL Absolute Neuts (auto) 3.3 (2.0-8.3) X10*3/uL Absolute Nucleated RBC 0.000 (0.0-0.012) X10*3/uL Nucleated RBC % (auto) 0.0 (0.0-0.2) /100WBC POC Glucose 424 H* (60-115) mg/dL COVID-19 (MARIMAR) Negative (Negative) COVID-19 Clin Com See Note Discharge Plan Discharge Clinical Impression: Polysubstance abuse Patient Disposition: Left Against Medical Advice Instructions: Diabetic Hyperglycemia (ED), Polysubstance Abuse (ED), Against Medical Advice (ED) Additional Instructions: return to ED for any worsening symptoms or concerns COME BACK AT ANY TIME YOUR BLOOD SUGAR WAS ELEVATED Prescriptions: No Action fluoxetine 20 mg capsule 20 mg PO QAM RF: 0 insulin lispro [Humalog KwikPen Insulin] 100 unit/mL insulin pen 2 - 10 unit subcut TID PRN (Reason: Hyperglycemia) RF: 0 quetiapine 50 mg tablet 0.5 - 1 tab PO TID PRN (Reason: anxiety) RF: 0 Lantus Solostar U-100 Insulin 100 unit/mL (3 mL) insulin pen 20 unit subcut QAM RF: 0 Lantus Solostar U-100 Insulin 100 unit/mL (3 mL) insulin pen 25 unit subcut QPM RF: 0 methadone [Methadone Intensol] 10 mg/mL Concentrate 25 mg PO DAILY RF: 0
[2021-01-23 18:01] VITALS: BP 114/74; BP 116/70; PULSE 104; PULSE 80; RESP 12; TEMP 36.1; O2SAT 92
[2021-01-23 18:04] VITALS: BP 114/74; PULSE 104; RESP 12; TEMP 36.1; O2SAT 92
[2021-01-23 18:12] LABS: Glucose, Whole Blood 424 mg/dL (60-115)
[2021-01-23 18:30] LABS: MANUAL DIFF FLAG NO
[2021-01-23 18:32] LABS: Basophils Percent Auto 0.5 % (0-2); Eosinophils Percent Auto 0.2 % (0-4); Hematocrit 39.5 % (37-47); Hemoglobin 14.4 g/dl (12.0-16.0); Imm Gran Abs Auto 0.04 X10*3/uL (0.00-0.03); Imm Gran Pct Auto 0.7 % (0.0-0.4); Lymphocytes Absolute Auto 1.9 X10*3/uL (1.2-4.9); Lymphocytes Percent Auto 33.7 % (20-40); Mean Corpuscular HGB Conc 36.5 g/dl (31.0-35.0); Mean Corpuscular Hemoglobin 35.4 pg (27.0-33.0); Mean Corpuscular Volume 97.1 fL (80-98); Mean Platelet Volume 9.1 fL (9.4-12.3); Monocytes Absolute Auto 0.4 X10*3/uL (0.1-1.2); Monocytes Percent Auto 6.9 % (2-11); Neutrophils Absolute Auto 3.3 X10*3/uL (2.0-8.3); Platelet Count 239 X10*3/uL (160-400); Red Blood Count 4.07 X10*6/uL (4.20-5.50); White Blood Count 5.6 X10*3/uL (4.8-10.8)
[2021-01-23 18:37] LABS: COVID-19 Test Negative (Negative)
[2021-01-23 18:50] LABS: Ethanol 258 mg/dL
[2021-01-23 18:56] LABS: Alanine Aminotransferase 47 U/L (0-31); Albumin Level 4.5 g/dL (3.5-5.0); Alkaline Phosphatase 177 U/L (39-117); Aspartate Amino Transferase 64 U/L (5-31); Bilirubin Direct 0.2 mg/dL (0.0-0.5); Bilirubin Total 0.4 mg/dL (0.0-1.0); Blood Urea Nitrogen 8 mg/dL (9-16); Calcium 8.9 mg/dL (8.4-10.2); Creatinine Clr Calc Pharmacy 104.3; Estimated Glomerular Filt Rate > 60; Total Protein 7.5 g/dL (6.5-8.0)
[2021-01-23 18:58] LABS: Glucose Random 465 mg/dL (60-115)
[2021-01-23 19:09] LABS: Anion Gap 25 (12-20); Carbon Dioxide 23 mmol/L (22-29); Chloride 97 mmol/L (96-108); Potassium 3.9 mmol/L (3.3-5.1); Sodium 141 mmol/L (135-145)
== END 2021-01-23 19:24 | disposition left against medical advice (07) ==
PROVIDERS: Emergency Provider Emergency Medicine
DX: F11.10 Opioid abuse, uncomplicated (principal); F10.120 Alcohol abuse with intoxication, uncomplicated; Y90.8 Blood alcohol level of 240 mg/100 ml or more; E11.65 Type 2 diabetes mellitus with hyperglycemia; Z79.4 Long term (current) use of insulin; Z20.822 Contact with and (suspected) exposure to COVID-19
CPT/HCPCS: 36415; 80048; 80076; 82077; 82947; 85025; 87635; 99283

== ENCOUNTER 2021-10-12 20:32 | Observation (INO) | payer OTHER, SELFPAY ==
--- NOTE | ~2021-10-12 | XR_ITS ---
EXAMINATION: XR CHEST CLINICAL INFORMATION: Cough COMPARISON: 06/27/2010 TECHNIQUE: Frontal view of the chest was obtained. FINDINGS: Bilateral linear and patchy peripherally predominant airspace opacities. No pleural effusion or pneumothorax. Normal heart size and pulmonary vascularity. No acute osseous abnormalities. XR/XR chest 1V IMPRESSION: Bilateral linear and patchy peripherally predominant airspace opacities suggestive of an atypical pneumonitis.
[2021-10-12 20:50] VITALS: BP 104/47; BP 116/80; PULSE 104; PULSE 89; RESP 12; TEMP 36.5; O2SAT 98; O2SAT 99; BMI 29.0
--- NOTE | 2021-10-12 20:51 | ED_ITS ---
HPI - Overdose General Chief Complaint: Overdose Stated Complaint: Heroine use Time Seen by Provider: 10/12/21 20:48 Source: patient and EMS Mode of arrival: EMS Limitations: no limitations History of Present Illness MD complaint: accidental overdose Onset (ago): minute(s) How Overdose Was Discovered: other (found sleeping outside of [facility] was called) Context: Accidental Overdose: wanted to get high Treatments Prior to Arrival: none and other (did leave [facility] today after being treated for high BS - BS 124 on our arrival ) Related Data Home Medications Medication Instructions Recorded Confirmed fluoxetine 20 mg capsule 20 mg PO QAM 01/20/21 01/20/21 insulin glargine 100 unit/mL (3 20 unit SUBCUT QAM 01/20/21 01/20/21 mL) subcutaneous pen (Lantus Solostar U-100 Insulin) insulin glargine 100 unit/mL (3 25 unit SUBCUT QPM 01/20/21 01/20/21 mL) subcutaneous pen (Lantus Solostar U-100 Insulin) insulin lispro 100 unit/mL 2 - 10 unit SUBCUT TID PRN 01/20/21 01/20/21 subcutaneous pen (Humalog KwikPen (U-100) Insulin) methadone 10 mg/mL oral 25 mg PO DAILY 01/20/21 concentrate (Methadone Intensol) quetiapine 50 mg tablet 0.5 - 1 tab PO TID PRN 01/20/21 01/20/21 Allergies Allergy/AdvReac Type Severity Reaction Status Date / Time No Known Allergies Allergy Verified 10/17/20 11:12 Review of Systems Review of Systems: Constitutional : No Fever, No Chills ENT/Mouth : No Ear Pain, No Nasal Congestion, No sore throat Eyes: No Eye Pain, No Swelling, No Redness Cardiovascular : No Chest Pain, No SOB Respiratory : No Cough, No Sputum, No Dyspnea Gastrointestinal : No Nausea, No Vomiting, No Diarrhea, No Hematochezia, No Melena Genitourinary : No Dysuria, No Urinary Frequency, No Hematuria Musculoskeletal : No Myalgias Skin : No Skin Lesions, No rash Neuro : No Weakness, No Numbness, No Paresthesias, No Dizziness, No Headache Psych : no Anxiety, no Depression, no SI/HI Heme/Lymph: No Lymphadenopathy Endocrine : No Polyuria, No Polydipsia All other systems reviewed and are negative PMFSH Past Medical History Attestation statement: The following information was validated with the patient. Medical History FH: cholecystectomy Fracture of shaft of humerus IDDM (insulin dependent diabetes mellitus) Swollen leg Surgical History History of removal of cyst History of surgery on arm Hx of cholecystectomy Family History Family History Father No problems noted. Mother No problems noted. Social History Social History Household Members: Family Housing: House Alcohol intake: current Patient Tobacco Use Status: Tobacco use Unknown Cigarettes Per Day: 8 Second Hand Smoke Exposure: Yes Use of substances other than those prescribed or required for medical reasons: Yes Substance Use Type: Heroin Substance Use Frequency: Chronic Longstanding Last Used Substance: Just Prior to Admission Any prior treatment program specific to substance use: Yes Advance Directives: No Advance Directives Information Provided: No Patient : No Current occupational status: unemployed Current occupation: right handed Physical Exam Vital Signs: Vital Signs: Last Vital Signs Temp 97.7 F 10/12/21 20:50 Pulse 85 10/13/21 00:12 Resp 20 10/13/21 00:12 BP 110/75 10/13/21 00:12 Pulse Ox 100 10/13/21 00:12 Oxygen Flow Rate 2 10/12/21 20:50 BMI result Body Mass Index 29.0 Appearance: Somnolent Oriented X3. Mild acute distress. Eyes: Pupils equal, round and reactive to light. ENT: Pharynx normal. Neck: Normal inspection. Neck supple. CVS: Normal heart rate and rhythm. Pulses normal. Respiratory: No respiratory distress. Breath sounds normal. Abdomen: Soft and non-tender. Skin: Skin warm and dry. pale skin color. Normal skin turgor. Extremities: No lower extremity edema. No calf ttp Neuro: Oriented X 3. No motor deficit. No sensory deficit. Course Course Course Narrative: more somnolent eyes rolling back end tidal 58 - 0.2mg IV narcan responded well repeat 0.4mg narcan ordered patient easily woken at this time but will still need to be observed until more metabolized Physician observation started at 1252am. Patient placed in physician observation because the patient needed more time for metabolization of heroin overdose. At the time observation was started the patient's vitals were stable, patient is easily woken but still slightly somnolent when woken she is oriented, Neuro: nonfocal, CV RRR, Lungs clear Procedures EJ/Peripheral Line Neck L: Time Out Performed: Yes Skin Cleansed in Sterile Fashion: Yes Size (gauge): 20 IV Secured and Dressing Applied: Yes Patient Tolerated Procedure: well and no complications MDM - Overdose MDM Narrative Medical decision making narrative: 35 yo female with hx of IDDM, pain issues, substance abuse admits to snorting 2 bags of heroin tonight no SI found sleeping outside of [place] no prehospital narcan, no SI, does not want detox - will monitor for sedation suspect her presentation she will need narcan - on endtidal, monitor and O2 sat. Critical Care Time Critical Care Time Critical Care Time: Yes Total Critical Care Time: 45 Attestation: repeat IV narcan for overdose, reassessments I attest to this time spent taking care of the patient Discharge Plan Discharge Clinical Impression: Drug overdose Patient Disposition: Still a Patient Instructions: Adult Overdose (ED), Opioid Use Disorder (ED) Additional Instructions: return to ED for any worsening symptoms or concerns please consider detox Prescriptions: No Action fluoxetine 20 mg capsule 20 mg PO QAM 0RF insulin lispro [Humalog KwikPen Insulin] 100 unit/mL insulin pen 2 - 10 unit subcut TID PRN (Reason: Hyperglycemia) 0RF quetiapine 50 mg tablet 0.5 - 1 tab PO TID PRN (Reason: anxiety) 0RF Rx Instructions: USED FOR SLEEP AND ANXIETY PRN Lantus Solostar U-100 Insulin 100 unit/mL (3 mL) insulin pen 20 unit subcut QAM 0RF Lantus Solostar U-100 Insulin 100 unit/mL (3 mL) insulin pen 25 unit subcut QPM 0RF methadone [Methadone Intensol] 10 mg/mL Concentrate 25 mg PO DAILY 0RF
[2021-10-12] MEDS: ondansetron HCL 4 MG/2 ML VIAL IVPUSH (21:05)
[2021-10-12] MEDS: Naloxone HCl 0.4 MG/ML VIAL 0.2 MG IVPUSH (21:05)
[2021-10-12] MEDS: 0.9 % Sodium Chloride 500 ML IV (21:23)
--- NOTE | 2021-10-12 21:32 | MHC.CARE ---
CARE team attempted to see pt with success coach Bryanna. Pt was difficult to engage due to altered mental status. Pt asked for team to come back at a later time once more awake.
[2021-10-12] MEDS: Naloxone HCl 0.4 MG/ML VIAL IVPUSH (21:36)
[2021-10-12 22:24] VITALS: BP 134/89; PULSE 86; RESP 11; O2SAT 97
[2021-10-13] VITALS (12 sets, daily range): BP systolic 103–142; BP diastolic 59–101; PULSE 68–93; RESP 13–20; TEMP 36.4–37.2; O2SAT 93–100
[2021-10-13 01:05] LABS: Glucose, Whole Blood 137 mg/dL (60-115)
[2021-10-13 01:07] LABS: Glucose, Whole Blood 134 mg/dL (60-115)
--- NOTE | 2021-10-13 02:37 | PC.NURSE ---
Patient given narcan x 2. very sleepy but arousable. Patient keeps taking off oxygen otherwise vitals stable. Patient denies pain. [id number] Will continue to monitor.
[2021-10-13 05:03] LABS: Glucose, Whole Blood 102 mg/dL (60-115)
--- NOTE | 2021-10-13 05:08 | PC.NURSE ---
Patient's blood sugar was 102. Patient given a sandwich as well as juice. Patient is awake.
[2021-10-13 05:51] LABS: MANUAL DIFF FLAG NO
[2021-10-13 05:52] LABS: Basophils Percent Auto 0.4 % (0-2); Eosinophils Absolute Auto 0.1 X10*3/uL (0.0-0.4); Eosinophils Percent Auto 1.1 % (0-4); Hematocrit 31.8 % (37.0-47.0); Hemoglobin 10.6 g/dl (12.0-16.0); Imm Gran Abs Auto 0.05 X10*3/uL (0.00-0.03); Imm Gran Pct Auto 0.7 % (0.0-0.4); Lymphocytes Absolute Auto 1.3 X10*3/uL (1.2-4.9); Lymphocytes Percent Auto 16.9 % (20-40); Mean Corpuscular HGB Conc 33.3 g/dl (31.0-35.0); Mean Corpuscular Hemoglobin 32.2 pg (27.0-33.0); Mean Corpuscular Volume 96.7 fL (80.0-98.0); Mean Platelet Volume 9.8 fL (9.4-12.3); Monocytes Absolute Auto 0.6 X10*3/uL (0.1-1.2); Monocytes Percent Auto 7.2 % (2-11); Neutrophils Absolute Auto 5.6 x10*3/uL (2.0-8.3); Neutrophils Percent Auto 73.7 % (45-73); Platelet Count 236 X10*3/uL (160-400); Red Blood Count 3.29 X10*6/uL (4.20-5.50); White Blood Count 7.6 X10*3/uL (4.8-10.8)
[2021-10-13 06:07] LABS: Alanine Aminotransferase 136 U/L (0-31); Albumin Level 3.1 g/dL (3.5-5.0); Alkaline Phosphatase 149 U/L (39-117); Anion Gap 10 (12-20); Aspartate Amino Transferase 190 U/L (5-31); Bilirubin Total 0.6 mg/dL (0.0-1.0); Blood Urea Nitrogen 5 mg/dL (9-16); COVID-19 Test Negative (Negative); Carbon Dioxide 35 mmol/L (22-29); Chloride 100 mmol/L (96-108); Creatinine Clr Calc Pharmacy 150.1; Estimated Glomerular Filt Rate > 60; Glucose Random 99 mg/dL (60-115); Potassium 4.6 mmol/L (3.3-5.1); Sodium 140 mmol/L (135-145)
--- NOTE | 2021-10-13 06:17 | PC.NURSE ---
Patient would desat into the 70's and then go back up to 90's and then desat again. Patient might have aspirated when she overdose and that is what is causing the oxygen desats. CXR ordered and results back. Patient has an atypical pneumonitis. Plan was for patient to be discharged this am but will possible need to be admitted.
--- NOTE | 2021-10-13 06:21 | ECG_ITS ---
Test Reason : SOB Blood Pressure : / mmHG Vent. Rate : 076 BPM Atrial Rate : 076 BPM P-R Int : 158 ms QRS Dur : 084 ms QT Int : 426 ms P-R-T Axes : 051 019 037 degrees QTc Int : 479 ms Normal sinus rhythm Normal ECG When compared with ECG of 20-JAN-2021 16:43, Nonspecific T wave abnormality no longer evident in Anterior leads Referred By: Arlene Chan Electronically Signed By:JAVIER SINGLETON MD
[2021-10-13 06:41] LABS: Ethanol < 10 mg/dL
[2021-10-13 08:18] LABS: Glucose, Whole Blood 103 mg/dL (60-115)
--- NOTE | 2021-10-13 08:19 | PHA.MEDREC ---
Pharmacy Consult ? Medication Reconciliation Pharmacy has reviewed the medication reconciliation completed by Chantelle. Patient no longer takes Fluoxetine per claim history and [facility] discharge summary. Patient was just at [facility]. Some medication on discharge medication list were no included on med rec. Patient discharge 10/12/21. Gabapentin and ativan were given while at [facility] however gabapentin was last filled in 2020. Adriana Enriquez, PharmD
--- NOTE | 2021-10-13 08:23 | HE.PHANOTE ---
Methadone 60 mg last given at [facility] on 10/12/21 per discharge medication list
[2021-10-13] MEDS: methADONE HCl 20 MG/2 ML ORAL.CONC 60 MG PO (09:27)
[2021-10-13] MEDS: Thiamine HCL 100 MG TABLET PO (09:28)
[2021-10-13] MEDS: DULoxetine HCl 30 MG CAPSULE.DR PO (09:28)
[2021-10-13] MEDS: Acamprosate Calcium 333 MG TABLET.DR 666 MG PO (09:28)
[2021-10-13] MEDS: Famotidine 20 MG TABLET PO ×2 (09:28→22:19)
[2021-10-13] MEDS: Pyridoxine HCl (Vitamin B6) 50 MG TABLET PO (09:28)
[2021-10-13] MEDS: Insulin Glargine,Hum.rec.anlog 100 UNIT/ML 10 ML VIAL 48 UNIT SUBCUT (09:28)
--- NOTE | 2021-10-13 10:33 | PM.IMHP ---
History of Present Illness Date of Service: 10/13/21 Chief Complaint: accidental overdose This is a 35 yo F with a history of IDDM, OUD (snorts heroin, last use the day prior), tobacco use about 1/2 PPD, anxiety/depression, EtOH use who is BIBA after she was found down after a suspected overdose. The patient initially responded to Narcan x 2 in the ED and was under physician observation. She began becoming less lethargic but sesequently developed hypoxia (while awake) and underwent work up which revealed a cxr concerning for aspiration pnuemonitis. Furthermore, she had elevation in her transaminitis. She is now improved, but complaining of a productive cough for several days. She reports pleurtic type chest pain which began after several days of coughing. She denies any fevers or chills. In regarding to her opiate use -- she reports that she snorts heroin and used 3 bags on the day prior to arrival. She reports being clean for the preceeding 2 weeks prior to this. She reports that it was an accidental OD and she denies any SI/HI. She does endorse she is having a difficult time in life but explicitily denies being suicidal. She reports heavy EtOH use -- 1 Handle of vodka daily, with last use 4 days prior to arrival. Review of Systems Review of Systems: negative except [facility] Medical History FH: cholecystectomy Fracture of shaft of humerus IDDM (insulin dependent diabetes mellitus) Swollen leg Family History Father No problems noted. Mother No problems noted. Surgical History History of removal of cyst History of surgery on arm Hx of cholecystectomy Social History Household Members: Family Housing: House Alcohol intake: current Alcohol intake frequency: 3 or more drinks per day Patient Tobacco Use Status: Never used Tobacco Cigarettes Per Day: 8 Second Hand Smoke Exposure: Yes Use of substances other than those prescribed or required for medical reasons: Yes Substance Use Type: Heroin Substance Use Frequency: Chronic Longstanding Last Used Substance: Just Prior to Admission Any prior treatment program specific to substance use: Yes Advance Directives: No Advance Directives Information Provided: No Patient : No Current occupational status: unemployed Current occupation: right handed Meds Allergies Allergy/AdvReac Type Severity Reaction Status Date / Time No Known Allergies Allergy Verified 10/17/20 11:12 Active Medications: Current Medications Acamprosate (Acamprosate Calcium 333 Mg Tablet.) 666 mg PO TID [facility] Last Admin: 10/13/21 09:28 Dose: 666 mg Documented by: Clonidine HCl (Clonidine Hcl 0.1 Mg Tablet) 0.1 mg PO TID PRN; Protocol PRN Reason: anxiety Cyclobenzaprine HCl (Cyclobenzaprine Hcl 10 Mg Tablet) 10 mg PO TID PRN PRN Reason: muscle pain Doxycycline Hyclate (Doxycycline Hyclate 100 Mg Tablet) 100 mg PO Q12H [facility] Duloxetine HCl (Duloxetine Hcl 30 Mg Capsule.) 30 mg PO DAILY [facility] Last Admin: 10/13/21 09:28 Dose: 30 mg Documented by: Famotidine (Famotidine 20 Mg Tablet) 20 mg PO BID [facility] Last Admin: 10/13/21 09:28 Dose: 20 mg Documented by: Folic Acid (Folic Acid 1 Mg Tablet) 1 mg PO DAILY [facility] Gabapentin (Gabapentin 100 Mg Capsule) 100 mg PO TID [facility] Hydroxyzine HCl (Hydroxyzine Hcl 50 Mg Tablet) 50 mg PO TID PRN PRN Reason: anxiety Insulin Glargine (Insulin Glargine,Hum.Rec.Anlog 100 Unit/Ml 10 Ml Vial) 48 unit SUBCUT DAILY [facility] Last Admin: 10/13/21 09:28 Dose: 48 unit Documented by: Lorazepam (Lorazepam 1 Mg Tablet) 1 mg PO TID PRN PRN Reason: Anxiety Methadone HCl (Methadone Hcl 20 Mg/2 Ml Oral.Conc) 60 mg PO DAILY [facility] Last Admin: 10/13/21 09:27 Dose: 60 mg Documented by: Prednisone (Prednisone 20 Mg Tablet) 40 mg PO DAILY [facility] Propranolol HCl (Propranolol Hcl 10 Mg Tablet) 10 mg PO TID PRN; Protocol PRN Reason: anxiety Pyridoxine HCl (Pyridoxine Hcl (Vitamin B6) 50 Mg Tablet) 50 mg PO DAILY [facility] Last Admin: 10/13/21 09:28 Dose: 50 mg Documented by: Sodium Chloride (0.9 % Sodium Chloride Flush 3 Ml Syringe) 3 ml IVFLUSH QSHIFT [facility] Thiamine HCl (Thiamine Hcl 100 Mg Tablet) 100 mg PO DAILY [facility] Last Admin: 10/13/21 09:28 Dose: 100 mg Documented by: Trazodone HCl (Trazodone Hcl 50 Mg Tablet) 50 mg PO BEDTIME [facility] Home Medications Medication Instructions Recorded Confirmed Last Taken Type methadone 10 mg/mL oral 60 mg PO DAILY 01/20/21 10/13/21 10/12/21 History concentrate (Methadone Intensol) acamprosate 333 mg tablet,delayed 2 tab PO TID 10/13/21 10/13/21 10/12/21 History release clonidine HCl 0.1 mg tablet 1 tab PO TID PRN 10/13/21 10/13/21 Unknown History cyclobenzaprine 10 mg tablet 10 mg PO TID PRN 10/13/21 10/13/21 Unknown History duloxetine 30 mg capsule,delayed 1 cap PO DAILY 10/13/21 10/13/21 10/12/21 History release etonogestrel 68 mg subdermal 68 mg SUBDERMAL ONCE 10/13/21 10/13/21 Unknown History implant famotidine 20 mg tablet 1 tab PO BID 10/13/21 10/13/21 10/12/21 History folic acid 1 mg tablet 1 mg PO DAILY 10/13/21 10/13/21 10/12/21 History gabapentin 100 mg capsule 100 mg PO TID 10/13/21 10/13/21 10/12/21 History hydroxyzine HCl 50 mg tablet 1 tab PO TID PRN 10/13/21 10/13/21 Unknown History insulin glargine 100 unit/mL (3 48 unit SUBCUT DAILY@1100 10/13/21 10/13/21 10/12/21 History mL) subcutaneous pen (Lantus Solostar U-100 Insulin) insulin lispro 100 unit/mL 0 sliding scale dose SUBCUT TIDAC 10/13/21 10/13/21 10/12/21 History subcutaneous pen lorazepam 1 mg tablet (Ativan) 1 mg PO TID PRN 10/13/21 10/13/21 Unknown History multivitamin 1 tab PO DAILY 10/13/21 10/13/21 10/12/21 History nicotine 21 mg/24 hr daily 1 patch TRANSDERMAL DAILY 10/13/21 10/13/21 10/12/21 History transdermal patch propranolol 10 mg tablet 1 tab PO TID PRN 10/13/21 10/13/21 Unknown History pyridoxine (vitamin B6) 50 mg 1 tab PO DAILY 10/13/21 10/13/21 10/12/21 History tablet thiamine HCl (vitamin B1) 100 mg 1 tab PO DAILY 10/13/21 10/13/21 Unknown History tablet trazodone 50 mg tablet 1 tab PO BEDTIME 10/13/21 10/13/21 10/12/21 History Physical Exam Vital Signs and Narrative: Vital Signs: Last Vital Signs Temp 98.3 F 10/13/21 06:59 Pulse 83 10/13/21 09:27 Resp 16 10/13/21 09:27 BP 122/81 10/13/21 06:59 Pulse Ox 96 10/13/21 09:27 Oxygen Flow Rate 2 10/12/21 20:50 BMI result Body Mass Index 29.0 Const: Other: Constitutional - Awake and Alert, No apparent distress, unkempt Eyes - PERRLA, EOMI Cardiovascular - S1S2, RRR, No edema Respiratory - no wheezing appreciated, moving air well, no respiratory distress Gastrointestinal - NT / ND; +BS; No rebound or guarding - No CVA tenderness Extremities - no calf tenderness bilaterally, no swelling Musculoskeletal - Normal inspection, normal ROM Skin - Warm/Dry Neurological - Alert & oriented x3, No focal deficit Psychological - Appropriate affect Results Labs CBC and Chem 7: 10/13/21 05:43 10/13/21 05:43 Labs: Laboratory Results - last 24 hr 10/13/21 10/13/21 10/13/21 00:59 01:03 04:59 MCV MCH MCHC RDW Plt Count MPV Immature Gran % (Auto) Neut % (Auto) Lymph % (Auto) [place] % (Auto) Eos % (Auto) Baso % (Auto) Lymph # (Auto) [place] # (Auto) Eos # (Auto) Baso # (Auto) Abs Immat Gran (auto) Absolute Neuts (auto) Absolute Nucleated RBC Nucleated RBC % (auto) Anion Gap Estim Creat Clear Calc Estimated GFR POC Glucose 137 H 134 H 102 Random Glucose Calcium Total Bilirubin AST ALT Alkaline Phosphatase Total Protein Albumin Ethyl Alcohol COVID-19 ([facility]) COVID-19 Clin Com 10/13/21 10/13/21 10/13/21 05:43 05:43 05:43 MCV 96.7 MCH 32.2 MCHC 33.3 RDW 12.0 Plt Count 236 MPV 9.8 Immature Gran % (Auto) 0.7 H Neut % (Auto) 73.7 H Lymph % (Auto) 16.9 L [place] % (Auto) 7.2 Eos % (Auto) 1.1 Baso % (Auto) 0.4 Lymph # (Auto) 1.3 [place] # (Auto) 0.6 Eos # (Auto) 0.1 Baso # (Auto) 0.0 Abs Immat Gran (auto) 0.05 H Absolute Neuts (auto) 5.6 Absolute Nucleated RBC 0.000 Nucleated RBC % (auto) 0.0 Anion Gap 10 L Estim Creat Clear Calc 150.1 Estimated GFR > 60 POC Glucose Random Glucose 99 D Calcium 9.0 Total Bilirubin 0.6 AST 190 H ALT 136 H Alkaline Phosphatase 149 H Total Protein 6.0 L Albumin 3.1 L D Ethyl Alcohol COVID-19 ([facility]) Negative COVID-19 Clin Com See Note 10/13/21 10/13/21 05:43 08:13 MCV MCH MCHC RDW Plt Count MPV Immature Gran % (Auto) Neut % (Auto) Lymph % (Auto) [place] % (Auto) Eos % (Auto) Baso % (Auto) Lymph # (Auto) [place] # (Auto) Eos # (Auto) Baso # (Auto) Abs Immat Gran (auto) Absolute Neuts (auto) Absolute Nucleated RBC Nucleated RBC % (auto) Anion Gap Estim Creat Clear Calc Estimated GFR POC Glucose 103 Random Glucose Calcium Total Bilirubin AST ALT Alkaline Phosphatase Total Protein Albumin Ethyl Alcohol < 10 COVID-19 ([facility]) COVID-19 Clin Com Imaging Radiologist's Impressions: Impressions Chest X-Ray 10/13/21 05:42 IMPRESSION: Bilateral linear and patchy peripherally predominant airspace opacities suggestive of an atypical pneumonitis. Assessment and Plan (1) Aspiration pneumonitis: Status: Acute Plan This is a 35 yo F with a PMH of IDDM, OUD, EtOH abuse -- last use 4 days prior to arrival, anxiety/depression who is BIB[place] [facility] [place] after an accidental overdose. Initially, she reponsded well to narcan and was being observed in the ED but she became increasing hypoxic (now resolved) and now will be observed overnight. 1. Transient Hypoxia, no respiratory failure with hypoxia at the time of admission 1a. Accidental opiate overdose, opiate use disorder likely 2/2 to OD monitor off O2 on methadone, continue the same 2. Suspected aspiration pneumonitis CXR findings consistent with this no fevers / wbc elevation to suggestion pneumonia at this time; in light of her diabetes and smoking status -- at risk for developing this and hence will give empiric doxy for 5-7d PO prednisone for 5 days 3. Transaminitis due to heavy EtOH abuse check viral Hep screen trend tomorrow 4. DM continue lantus + sliding scale diabetic diet 5. Mood continue baseline meds denies SI Care team consult Full Code DVT pptx, low risk -- early ambulation If no furtther hypoxia and LFTs stable, likely d/c tomorrow Quality Stroke Does the patient have a stroke diagnosis?: No VTE Prior VTE?: No VTE Risk Level:: Medical - low VTE Device Contraindication: Treatment Not Indicated VTE Drug Contraindication: Treatment Not Indicated
[2021-10-13] MEDS: LORazepam 1 MG TABLET PO (10:54)
[2021-10-13] MEDS: predniSONE 20 MG TABLET 40 MG PO (10:54)
[2021-10-13 11:43] LABS: HBc Num1 0.25 S/CO (0.00-0.79); Hepatitis A Antibody IgM 0.22 Index (0-0.79); Hepatitis B Core Antibody Nonreactive (Nonreactive); ~HepC Num1 9.32 S/CO (0.00-0.79); ~Hepatitis A Antibody IgM Nonreactive (Nonreactive); ~Hepatitis C Antibody Reactive (Nonreactive)
[2021-10-13 12:32] LABS: Glucose, Whole Blood 115 mg/dL (60-115)
[2021-10-13 14:13] LABS: HBsAGNum1 0.28 S/CO (0.00-0.99); Hepatitis B Surface Antigen Negative (Negative)
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
[2021-10-13 14:30] LABS: HBS Num1 9.91 mIU/mL (0-7.99); HBS Num2 10.69 mIU/mL (0-7.99); HBS Num3 10.16 mIU/mL (0-7.99); ~Hepatitis B Surface Antibody GRAYZONE (Nonreactive)
[2021-10-13] MEDS: PHENobarbitaL sodium 130 MG/ML VIAL 131 MG IM (15:37)
[2021-10-13] MEDS: 0.9 % Sodium Chloride Flush 3 ML SYRINGE IVFLUSH ×2 (15:37→22:29)
[2021-10-13] MEDS: Gabapentin 100 MG CAPSULE PO ×2 (15:37→22:19)
[2021-10-13 16:22] LABS: Glucose, Whole Blood 227 mg/dL (60-115)
[2021-10-13 18:16] LABS: Glucose, Whole Blood 285 mg/dL (60-115)
[2021-10-13] MEDS: Insulin Lispro 100 UNIT/ML 3 ML VIAL SUBCUT ×2 (18:19→22:20)
[2021-10-13] MEDS: PHENobarbitaL sodium 130 MG/ML VIAL 99 MG IM ×2 (19:32→22:19)
[2021-10-13 21:11] LABS: Glucose, Whole Blood 301 mg/dL (60-115)
[2021-10-13] MEDS: traZODone HCL 50 MG TABLET PO (22:19)
[2021-10-14] MEDS: cloNIDine HCL 0.1 MG TABLET PO ×2 (02:56→22:16)
[2021-10-14 04:25] VITALS: BP 115/75; PULSE 86; RESP 16; TEMP 36.9; O2SAT 98
[2021-10-14 04:26] VITALS: RESP 16
[2021-10-14 06:03] LABS: Alanine Aminotransferase 141 U/L (0-31); Alkaline Phosphatase 151 U/L (39-117); Aspartate Amino Transferase 166 U/L (5-31); Bilirubin Direct 0.3 mg/dL (0.0-0.5); Bilirubin Total 0.4 mg/dL (0.0-1.0); Total Protein 5.9 g/dL (6.5-8.0)
[2021-10-14 07:56] VITALS: BP 115/72; PULSE 92; RESP 18; TEMP 36.2; O2SAT 93
[2021-10-14 08:03] LABS: Glucose, Whole Blood 294 mg/dL (60-115)
[2021-10-14] MEDS: Insulin Glargine,Hum.rec.anlog 100 UNIT/ML 10 ML VIAL 48 UNIT SUBCUT (08:17)
[2021-10-14] MEDS: methADONE HCl 20 MG/2 ML ORAL.CONC 60 MG PO (08:18)
[2021-10-14] MEDS: predniSONE 20 MG TABLET 40 MG PO (08:18)
[2021-10-14] MEDS: Insulin Lispro 100 UNIT/ML 3 ML VIAL SUBCUT ×4 (08:18→20:58)
[2021-10-14] MEDS: Folic Acid 1 MG TABLET PO (08:18)
[2021-10-14] MEDS: DULoxetine HCl 30 MG CAPSULE.DR PO (08:18)
[2021-10-14] MEDS: Pyridoxine HCl (Vitamin B6) 50 MG TABLET PO (08:19)
[2021-10-14] MEDS: Gabapentin 100 MG CAPSULE PO ×3 (08:19→20:57)
[2021-10-14] MEDS: 0.9 % Sodium Chloride Flush 3 ML SYRINGE IVFLUSH ×3 (08:19→22:20)
[2021-10-14] MEDS: Famotidine 20 MG TABLET PO ×2 (08:19→20:57)
[2021-10-14] MEDS: PHENobarbitaL 15 MG TABLET 45 MG PO ×2 (08:19→20:56)
[2021-10-14] MEDS: Thiamine HCL 100 MG TABLET PO (08:19)
--- NOTE | 2021-10-14 11:01 | MHC.CM.PN ---
PATIENT REPORTS BEING HOMELESS SHE IS NOT INTERESTED IN A HALFWAY LIST SHE STATES THAT SHE HAS BEEN VACCINATED AGAINST COVID WITH THE PFIZER SERIES (NO BOOSTER YET) BUT IS UNABLE TO RECALL THE DATES. SHE DOES NOT HAVE A PCP BUT DOES REPORT HAVING A NEW PATIENT VISIT IN DECEMBER 2021 WITH [facility]. PATIENT DOES NOT HAVE ANY PERSON THAT SHE WOULD LIKE TO NAME A HCP BUT IS AWARE THAT CASE MANAGEMENT CAN ASSIST IF SHE DECIDES TO COMPLETE ONE. SHE AMBULATES INDEPENDENTLY. CASE MANAGEMENT FOLLOWING.
[2021-10-14 11:32] LABS: Glucose, Whole Blood 188 mg/dL (60-115)
[2021-10-14 12:00] VITALS: BP 131/90; PULSE 86; RESP 20; TEMP 36.4; O2SAT 95
[2021-10-14 15:20] VITALS: BP 155/91; PULSE 72; RESP 18; TEMP 36.4; O2SAT 96
--- NOTE | 2021-10-14 15:35 | P.PNIM_ITS ---
Subjective Subjective Date of Service: 10/14/21 Review of Systems Follow up OD Feeling ok but still tired and having cough with phlegm Physical Exam Vital Signs: Vital Signs: Last Vital Signs Temp 97.6 F 10/14/21 15:20 Pulse 72 10/14/21 15:20 Resp 18 10/14/21 15:20 BP 155/91 H 10/14/21 15:20 Pulse Ox 96 10/14/21 15:20 Oxygen Flow Rate 2 10/12/21 20:50 BMI result Body Mass Index 29.0 Appearing in no acute distress lung sounds are clear to auscultation heart regular rate rhythm, clear S1, S2 positive bowel sounds, abdomen is soft, nontender neuro patient is alert x3, no focal deficits Objective Data Active Medications Clonidine HCl (Clonidine Hcl 0.1 Mg Tablet) 0.1 mg PO TID PRN; Protocol PRN Reason: anxiety Last Admin: 10/14/21 02:56 Dose: 0.1 mg Documented by: ALIZE Cyclobenzaprine HCl (Cyclobenzaprine Hcl 10 Mg Tablet) 10 mg PO TID PRN PRN Reason: muscle pain Doxycycline Hyclate (Doxycycline Hyclate 100 Mg Tablet) 100 mg PO Q12H [facility] Last Admin: 10/14/21 11:23 Dose: 100 mg Documented by: LEA Duloxetine HCl (Duloxetine Hcl 30 Mg Capsule.) 30 mg PO DAILY [facility] Last Admin: 10/14/21 08:18 Dose: 30 mg Documented by: LEA Famotidine (Famotidine 20 Mg Tablet) 20 mg PO BID [facility] Last Admin: 10/14/21 08:19 Dose: 20 mg Documented by: LEA Folic Acid (Folic Acid 1 Mg Tablet) 1 mg PO DAILY [facility] Last Admin: 10/14/21 08:18 Dose: 1 mg Documented by: LEA Gabapentin (Gabapentin 100 Mg Capsule) 100 mg PO TID [facility] Last Admin: 10/14/21 14:43 Dose: 100 mg Documented by: LEA Hydroxyzine HCl (Hydroxyzine Hcl 50 Mg Tablet) 50 mg PO TID PRN PRN Reason: anxiety Insulin Glargine (Insulin Glargine,Hum.Rec.Anlog 100 Unit/Ml 10 Ml Vial) 48 unit SUBCUT DAILY [facility] Last Admin: 10/14/21 08:17 Dose: 48 unit Documented by: LEA Insulin Human Lispro (Insulin Lispro 100 Unit/Ml 3 Ml Vial) 0 unit SUBCUT QIDACHS [facility]; Protocol Last Admin: 10/14/21 11:46 Dose: 2 unit Documented by: LEA Medication (No Benzodiazepines) 1 each MISCELLANE DAILY [facility] Methadone HCl (Methadone Hcl 20 Mg/2 Ml Oral.Conc) 60 mg PO DAILY [facility] Last Admin: 10/14/21 08:18 Dose: 60 mg Documented by: LEA Phenobarbital (Phenobarbital 15 Mg Tablet) 45 mg PO BID [facility] Stop: 10/15/21 21:01 Last Admin: 10/14/21 08:19 Dose: 45 mg Documented by: LEA Phenobarbital (Phenobarbital 30 Mg Tablet) 30 mg PO BID [facility] Stop: 10/17/21 21:01 Phenobarbital (Phenobarbital 15 Mg Tablet) 15 mg PO DAILY [facility] Stop: 10/19/21 09:01 Prednisone (Prednisone 20 Mg Tablet) 40 mg PO DAILY [facility] Last Admin: 10/14/21 08:18 Dose: 40 mg Documented by: LEA Propranolol HCl (Propranolol Hcl 10 Mg Tablet) 10 mg PO TID PRN; Protocol PRN Reason: anxiety Pyridoxine HCl (Pyridoxine Hcl (Vitamin B6) 50 Mg Tablet) 50 mg PO DAILY [facility] Last Admin: 10/14/21 08:19 Dose: 50 mg Documented by: LEA Sodium Chloride (0.9 % Sodium Chloride Flush 3 Ml Syringe) 3 ml IVFLUSH QSHIFT [facility] Last Admin: 10/14/21 08:19 Dose: 3 ml Documented by: LEA Thiamine HCl (Thiamine Hcl 100 Mg Tablet) 100 mg PO DAILY [facility] Last Admin: 10/14/21 08:19 Dose: 100 mg Documented by: LEA Trazodone HCl (Trazodone Hcl 50 Mg Tablet) 50 mg PO BEDTIME [facility] Last Admin: 10/13/21 22:19 Dose: 50 mg Documented by: ALIZE Labs CBC & Chem 7: 10/13/21 05:43 10/13/21 05:43 Labs: Laboratory Results - last 24 hr 10/13/21 10/13/21 10/13/21 16:18 18:10 21:07 POC Glucose 227 H 285 H 301 H Total Bilirubin Direct Bilirubin AST ALT Alkaline Phosphatase Total Protein Albumin 02/19/22 02/19/22 02/19/22 05:26 07:58 11:22 POC Glucose 294 H 188 H Total Bilirubin 0.4 Direct Bilirubin 0.3 AST 166 H ALT 141 H Alkaline Phosphatase 151 H Total Protein 5.9 L Albumin 3.0 L Assessment and Plan (1) Aspiration pneumonitis: Status: Acute Plan This is a 35 yo F with a PMH of IDDM, OUD, EtOH abuse -- last use 4 days prior to arrival, anxiety/depression who is BIBA to [facility] after an accidental overdose. Initially, she reponsded well to narcan and was being observed in the ED but she became increasing hypoxic (now resolved) and now will be observed overnight. Transient Hypoxia, no respiratory failure with hypoxia at the time of admission opiate overdose with hx of opiate use disorder monitor off O2 on methadone, continue the same Suspected aspiration pneumonitis CXR findings consistent with this no fevers / wbc elevation to suggestion pneumonia at this time; in light of her diabetes and smoking status -- at risk for developing this and hence will give empiric doxy for 5-7d PO prednisone for 5 days Transaminitis due to heavy EtOH abuse check viral Hep screen trending down DM continue lantus + sliding scale diabetic diet Mood continue baseline meds denies SI Care team consult pending Full Code DVT pptx, low risk -- early ambulation Attending Dr. Monahan Quality Stroke Does the patient have a stroke diagnosis?: No VTE Prior VTE?: No VTE Risk Level:: Medical - low VTE Device Contraindication: Treatment Not Indicated VTE Drug Contraindication: Treatment Not Indicated
[2021-10-14 17:05] LABS: Glucose, Whole Blood 391 mg/dL (60-115)
--- NOTE | 2021-10-14 18:00 | PC.NURSE ---
POC 391. Nikole Duque notified. 10 units insulin given per sliding scale.
[2021-10-14 19:38] VITALS: BP 159/102; PULSE 75; RESP 18; TEMP 36.2; O2SAT 94
[2021-10-14 20:35] LABS: Glucose, Whole Blood 325 mg/dL (60-115)
[2021-10-14] MEDS: traZODone HCL 50 MG TABLET PO (20:57)
--- NOTE | 2021-10-14 21:49 | MHC.CARE ---
CARE Team was consulted to meet with pt about outpatient behavioral health resources.Pt is alert and oriented x4, sitting on the edge of the bed in her hospital room, dressed in hospital attire. She is disheveled and appears older than her stated age. Eye contact is intermittent. Speech is quiet. Mood is dejected with congruent affect. Pt denies SI/HI/. Pt does not appear to be responding to internal stimuli. She reports that she is homeless and that she does not currently have a cell phone, but she is interested in being connected with outpatient psychiatric prescriber and therapist. CARE Team compiled a list of therapists, psychiatric prescribers, and other outpatient resources for pt. Pt declined to have a football coach meet with her taqueria, but is open to meeting with one tomorrow. CARE Team provided pt with business card for football coach Bryanna.
[2021-10-14] MEDS: hydrOXYzine HCL 50 MG TABLET PO (22:16)
[2021-10-15] VITALS: BP 109/71; PULSE 65; RESP 15; TEMP 36.1; O2SAT 95
[2021-10-15 03:30] VITALS: BP 121/77; PULSE 62; RESP 12; TEMP 36.1; O2SAT 96
[2021-10-15 06:57] LABS: Alanine Aminotransferase 145 U/L (0-31); Alkaline Phosphatase 150 U/L (39-117); Anion Gap 11 (12-20); Aspartate Amino Transferase 151 U/L (5-31); Bilirubin Direct 0.3 mg/dL (0.0-0.5); Bilirubin Total 0.5 mg/dL (0.0-1.0); Blood Urea Nitrogen 9 mg/dL (9-16); Calcium 8.7 mg/dL (8.4-10.2); Carbon Dioxide 34 mmol/L (22-29); Chloride 92 mmol/L (96-108); Creatinine Clr Calc Pharmacy 121.9; Estimated Glomerular Filt Rate > 60; Glucose Random 346 mg/dL (60-115); Sodium 133 mmol/L (135-145); Total Protein 5.9 g/dL (6.5-8.0)
[2021-10-15 07:50] LABS: Glucose, Whole Blood 273 mg/dL (60-115)
[2021-10-15 07:51] VITALS: BP 132/89; PULSE 54; RESP 18; TEMP 36.1; O2SAT 92
[2021-10-15] MEDS: Insulin Lispro 100 UNIT/ML 3 ML VIAL SUBCUT ×2 (08:00→11:40)
[2021-10-15] MEDS: methADONE HCl 20 MG/2 ML ORAL.CONC 60 MG PO (08:00)
[2021-10-15] MEDS: Famotidine 20 MG TABLET PO (08:01)
[2021-10-15] MEDS: Thiamine HCL 100 MG TABLET PO (08:01)
[2021-10-15] MEDS: Folic Acid 1 MG TABLET PO (08:01)
[2021-10-15] MEDS: Gabapentin 100 MG CAPSULE PO ×2 (08:01→14:40)
[2021-10-15] MEDS: PHENobarbitaL 15 MG TABLET 45 MG PO (08:01)
[2021-10-15] MEDS: DULoxetine HCl 30 MG CAPSULE.DR PO (08:01)
[2021-10-15] MEDS: Pyridoxine HCl (Vitamin B6) 50 MG TABLET PO (08:01)
[2021-10-15] MEDS: Insulin Glargine,Hum.rec.anlog 100 UNIT/ML 10 ML VIAL 48 UNIT SUBCUT (08:01)
[2021-10-15] MEDS: predniSONE 20 MG TABLET 40 MG PO (08:01)
[2021-10-15] MEDS: 0.9 % Sodium Chloride Flush 3 ML SYRINGE IVFLUSH (08:02)
--- NOTE | 2021-10-15 08:36 | PM.DS ---
DS: Providers Provider Date of Service: 10/15/21 <Nikole Duque NP - Last Filed: 10/15/21 11:12> Date of admission: 10/13/21 10:27 <Nikole Duque NP - Last Filed: 10/15/21 11:12> Primary care physician: Unknown Physician <Nikole Duque NP - Last Filed: 10/15/21 11:12> Consults: 10/13/21 10:43 Consult to Care Team Routine Comment: Reason for consultation: accidental OD, depressed, no SI <Nikole Duque NP - Last Filed: 10/15/21 11:12> Attending physician on discharge: Alexander Mlapah <Nikole Duque NP - Last Filed: 10/15/21 11:12> Discharging clinician: Nikole Duque <Nikole Duque NP - Last Filed: 10/15/21 11:12> DS: Summary Hospital Course Hospital Course: HP as per admitting provider This is a 35 yo F with a history of IDDM, OUD (snorts heroin, last use the day prior), tobacco use about 1/2 PPD, anxiety/depression, EtOH use who is BIBA after she was found down after a suspected overdose. The patient initially responded to Narcan x 2 in the ED and was under physician observation. She began becoming less lethargic but sesequently developed hypoxia (while awake) and underwent work up which revealed a cxr concerning for aspiration pnuemonitis. Furthermore, she had elevation in her transaminitis. She is now improved, but complaining of a productive cough for several days. She reports pleurtic type chest pain which began after several days of coughing. She denies any fevers or chills. In regarding to her opiate use -- she reports that she snorts heroin and used 3 bags on the day prior to arrival. She reports being clean for the preceeding 2 weeks prior to this. She reports that it was an accidental OD and she denies any SI/HI. She does endorse she is having a difficult time in life but explicitily denies being suicidal. She reports heavy EtOH use -- 1 Handle of vodka daily, with last use 4 days prior to arrival . Transient Hypoxia, no respiratory failure with hypoxia at the time of admission, opiate overdose with hx of opiate use disorder, seen by the CARE team, no thoughts of self harm. Given information for outpatient mental health providers and programs Suspected aspiration pneumonitis,CXR findings consistent with this. No fevers / wbc elevation to suggestion pneumonia at this time; in light of her diabetes and smoking status -- at risk for developing this and hence will give empiric doxy for 5-7d total. PO prednisone for 5 days total. Transaminitis, due to heavy EtOH abuse, trending down Requested refill of existing lantus and lispro insulin with insulin pen needles as well as gabapentin (7 days worth sent, patient to follow up with original prescriber) <Nikole Duque NP - Last Filed: 10/15/21 11:12> Time Spent with Patient Time attestation: Total time spent providing and/or coordinating discharge services: <Nikole Duque NP - Last Filed: 10/15/21 11:12> Discharge coordination time: Greater than 30 minutes <Nikole Duque NP - Last Filed: 10/15/21 11:12> Quality: Stroke Does the patient have a stroke diagnosis?: No <Nikole Duque NP - Last Filed: 10/15/21 11:12> Physical Exam Vital Signs: Vital Signs: Last Vital Signs Temp 97 F 10/15/21 07:51 Pulse 54 10/15/21 07:51 Resp 18 10/15/21 07:51 BP 132/89 10/15/21 07:51 Pulse Ox 92 10/15/21 07:51 Oxygen Flow Rate 2 10/12/21 20:50 BMI result Body Mass Index 29.0 <Nikole Duque NP - Last Filed: 10/15/21 11:12> Appearing in no acute distress head is normocephalic atraumatic eyes pupils are PERRLA sclera is anicteric mouth throat mucous membranes are intact and moist neck is supple no lymphadenopathy, no JVD noted lung sounds are clear to auscultation heart regular rate rhythm, clear S1, S2 positive bowel sounds, abdomen is soft, nontender neuro patient is alert x3, no focal deficits <Nikole Duque NP - Last Filed: 10/15/21 11:12> DS: Data Data Completed and Pending Labs on day of discharge: Laboratory Results - last 24 hr 10/14/21 10/14/21 10/14/21 11:22 15:27 19:44 Sodium Potassium Chloride Carbon Dioxide Anion Gap BUN Creatinine Estim Creat Clear Calc Estimated GFR POC Glucose 188 H 391 H* 325 H Random Glucose Calcium Total Bilirubin Direct Bilirubin AST ALT Alkaline Phosphatase Total Protein Albumin 10/15/21 10/15/21 10/15/21 05:56 05:56 07:30 Sodium 133 L Potassium 4.0 Chloride 92 L Carbon Dioxide 34 H Anion Gap 11 L BUN 9 D Creatinine 0.64 Estim Creat Clear Calc 121.9 Estimated GFR > 60 POC Glucose 273 H Random Glucose 346 H Calcium 8.7 Total Bilirubin 0.5 Direct Bilirubin 0.3 AST 151 H ALT 145 H Alkaline Phosphatase 150 H Total Protein 5.9 L Albumin 3.0 L <Nikole Duque NP - Last Filed: 10/15/21 11:12> Discharge Plan Discharge Anticipated Discharge Date/Time: 10/15/21 08:30 <Nikole Duque NP - Last Filed: 10/15/21 11:12> Patient Disposition: Home, Self-Care <Nikole Duque NP - Last Filed: 10/15/21 11:12> Referrals: Physician,Unknown J [Primary Care Provider] - 1 Week <Nikole Duque NP - Last Filed: 10/15/21 11:12> Discharge Medications: New prednisone 20 mg Tablet 40 mg PO DAILY Qty: 4 0RF doxycycline hyclate 100 mg Tablet 100 mg PO Q12H Qty: 8 0RF (DME) pen needle, diabetic [Pen Needle] 31 gauge x 1/4 needle See Rx Instructions .Route Qty: 100 0RF Rx Instructions: As directed Continued methadone [Methadone Intensol] 10 mg/mL Concentrate 60 mg PO DAILY 0RF cyclobenzaprine 10 mg tablet 10 mg PO TID PRN (Reason: muscle pain) 0RF clonidine HCl 0.1 mg tablet 1 tab PO TID PRN (Reason: anxiety) 0RF trazodone 50 mg tablet 1 tab PO BEDTIME 0RF thiamine HCl (vitamin B1) 100 mg tablet 1 tab PO DAILY 0RF Rx Instructions: take 1 tab beginning10/13/21 for 7 days hydroxyzine HCl 50 mg tablet 1 tab PO TID PRN (Reason: anxiety) 0RF propranolol 10 mg tablet 1 tab PO TID PRN (Reason: anxiety) 0RF famotidine 20 mg tablet 1 tab PO BID 0RF pyridoxine (vitamin B6) 50 mg tablet 1 tab PO DAILY 0RF acamprosate 333 mg tablet,delayed release (DR/EC) 2 tab PO TID 0RF duloxetine 30 mg capsule,delayed release(DR/EC) 1 cap PO DAILY 0RF folic acid 1 mg Tablet 1 mg PO DAILY 0RF etonogestrel 68 mg Implant 68 mg SUBDERMAL ONCE 0RF multivitamin Tablet 1 tab PO DAILY 0RF nicotine 21 mg/24 hr Patch 24 Hour 1 patch TRANSDERMAL DAILY 0RF lorazepam [Ativan] 1 mg Tablet 1 mg PO TID PRN (Reason: Anxiety) 0RF gabapentin 100 mg Capsule 100 mg PO TID Qty: 21 0RF insulin lispro 100 unit/mL insulin pen See Protocol sliding scale dose subcut TIDAC Qty: 3 0RF Protocol: Insulin Correction Scale Less than or equal to 110 ---- Give (units): 0 111 to 150 Give (units): 2 151 to 200 Give (units): 4 201 to 250 Give (units): 6 251 to 300 Give (units): 8 301 to 350 Give (units): 10 Greater than 350 Give (units): 12 Call MD if Blood Glucose > : 350 Lantus Solostar U-100 Insulin 100 unit/mL (3 mL) insulin pen 48 unit subcut DAILY@1100 Qty: 3 0RF Rx Instructions: BEFORE LUNCH <Nikole Duque NP - Last Filed: 10/15/21 11:12> Discharge Orders: Discharge Order (Routine); Ordered 10/15/21 Ordered By: Nikole Duque <Nikole Duque NP - Last Filed: 10/15/21 11:12> Diet: advance to usual diet <Nikole Duque NP - Last Filed: 10/15/21 11:12> Activity on Discharge: As tolerated <Nikole Duque NP - Last Filed: 10/15/21 11:12> Stand Alone Forms: Patient Portal Discharge page <Nikole Duque NP - Last Filed: 10/15/21 11:12> Care Plan Goals: Do not drink alcohol and go to AA <Nikole Duque NP - Last Filed: 10/15/21 11:12> Health Concerns: Overdose CAP <Nikole Duque NP - Last Filed: 10/15/21 11:12> Plan of Treatment: Take antibiotics as prescribed Prednisone for 2 more days Your last dose of Methadone 60 mg was on 10/15/21 at 0800 <Nikole Duque NP - Last Filed: 10/15/21 11:12> Assessment: See discharge summary I personally saw and examined the patient in conjunction with mid level and discussed finding, a/p and disposition and I agree with the above <Nikole Duque NP - Last Filed: 10/15/21 11:12> Patient Instructions: Adult Overdose (ED), Opioid Use Disorder (ED) <Nikole Duque NP - Last Filed: 10/15/21 11:12>
[2021-10-15 11:05] VITALS: BP 124/85; PULSE 72; RESP 18; TEMP 36.1; O2SAT 93
[2021-10-15 11:10] LABS: Glucose, Whole Blood 273 mg/dL (60-115)
--- NOTE | 2021-10-15 11:24 | MHC.CM.PN ---
PT WILL BE DISCHARGED TODAY PT NOT INTERESTED IN A LONGTERM OR SUBSTANCE ABUSE FACILITY REFERRAL PER NOTES, CARE TEAM WORKING ON A REFERRAL FOR OUTPATIENT MH TREATMENT LUNCH AND BUS PASSES WILL BE PROVIDED PRIOR TO DC
--- NOTE | 2021-10-15 12:20 | MHC.RECOVSUP ---
Recovery Support note: Patient is on waitlist for [facility]. Intake completed and medical clearance faxed to facility. Patient acknowledges that she will have to remain in communication with this facility after discharge to secure a bed. Patient accepted information on CSS/[facility]. Discussed shelters and [facility]. Patient reports the shelters in [place] do not have beds and that she wants to stay in that area to continue receiving her methadone. This creative services writer will provide patient with a last dose letter. Patient has contact information for this creative services writer in the event that she has any questions before or after discharge.
[2021-10-15 15:54] VITALS: BP 133/87; PULSE 77; RESP 18; TEMP 36.1; O2SAT 95
[2021-10-15 16:54] LABS: Glucose, Whole Blood 379 mg/dL (60-115)
== END 2021-10-15 16:36 | disposition home or self-care (01) ==
LOC: HO.ED 10-13 06:22 → HO.EDOVER 10-13 11:13 → HO.S3 10-13 17:43
PROVIDERS: Student in an Organized Health Care Education/Training Program; Admitting Provider Family Medicine; Emergency Provider Emergency Medicine; Visit Provider Nurse Practitioner Acute Care
DX: J69.0 Pneumonitis due to inhalation of food and vomit (principal); T40.1X1A Poisoning by heroin, accidental (unintentional), initial encounter; Y92.511 Restaurant or cafe as the place of occurrence of the external cause; R09.02 Hypoxemia; E11.42 Type 2 diabetes mellitus with diabetic polyneuropathy; R74.01 Elevation of levels of liver transaminase levels; F32.A Depression, unspecified; F17.210 Nicotine dependence, cigarettes, uncomplicated; F10.20 Alcohol dependence, uncomplicated; Y90.0 Blood alcohol level of less than 20 mg/100 ml; Z20.822 Contact with and (suspected) exposure to COVID-19; Z90.49 Acquired absence of other specified parts of digestive tract; Z79.4 Long term (current) use of insulin; Z79.891 Long term (current) use of opiate analgesic; Z79.899 Other long term (current) drug therapy; Z59.00 Homelessness unspecified
CPT/HCPCS: 36415; 71045; 80048; 80053; 80076; 82077; 82947; 85025; 86704; 86706; 86709; 86803; 87340; 87635; 93005; 96361; 96374; 96376; 99218; 99285; 99291; J2405; J2560